=== PATIENT | male | born 1975 | race Caucasian/White ===

== ENCOUNTER 2018-08-18 11:30 | Inpatient (IN) | payer OTHER ==
[2018-08-18] VITALS (9 sets, daily range): BP systolic 96–125; BP diastolic 54–83
[~2018-08-18] VITALS: Ht 198.1 cm; Wt 144.3 kg
[2018-08-18] MEDS ORDERED: PROPOFOL 50 ML IV ONE ×2 (11:38→12:30)
[2018-08-18] MEDS ORDERED: ETOMIDATE 20 MG/10 ML VIAL. IV ONE (11:45)
[2018-08-18] MEDS ORDERED: IV NORMAL SALINE 1000ML BAG 1,000 ML IV ONE ×2 (11:45)
[2018-08-18] MEDS ORDERED: ROCURONIUM 100 MG/10 ML VIAL. IV ONE (11:45)
--- NOTE | 2018-08-18 11:45 | EKG ---
[facility] [address] [place] [address] Test Date: 2018-08-18 Test Time: 11:37:48 Pat Name: NATALIE FERNANDES Department: Room: Gender: M Tuberculosis Specialist: : 1975 Requested By: JACKLYN TREJO Order Number: [id number] Reading MD: Po Gray MD Measurements Intervals [place] Rate: 130 P: AK: QRS: -2 QRSD: 110 T: 35 QT: 326 QTc: 487 Interpretive Statements PROBABLE SUPRAVENTRICULAR TACHYCARDIA - SINUS TACHYCARDIA Electronically Signed On 08-18-2018 12:39:59 CDT by Po Gray MD
[2018-08-18 11:54] LABS: BASO % 1 % (0-3); EOS % 0 % (0-3); HEMATOCRIT 41.9 % (39.0-53.0); HEMOGLOBIN 14.4 g/dL (13.0-17.5); LYMPH # 1.9 x10^3/uL (1.0-4.8); LYMPH % 20 % (24-48); MEAN CORPUSCULAR HEMOGLOBIN 32 pg (25-35); MEAN CORPUSCULAR HGB CONC 34 g/dL (31-37); MEAN CORPUSCULAR VOLUME 92 fL (79-100); MONO # 0.5 x10^3/uL (0.0-1.1); MONO % 5 % (0-9); NEUT % 74 % (31-73); PLATELET COUNT 189 x10^3/uL (140-400); RED BLOOD COUNT 4.55 x10^6/uL (4.30-5.70); RED CELL DISTRIBUTION WIDTH 13.3 % (11.5-14.5); WHITE BLOOD COUNT 9.5 x10^3/uL (4.0-11.0)
[2018-08-18 11:55] LABS: BILIRUBIN,URINE NEGATIVE (NEG); CLARITY,URINE CLEAR; COLOR,URINE YELLOW; NITRITE,URINE NEGATIVE (NEG); PH,URINE 5.5; PROTEIN,URINE NEGATIVE (NEG-TRACE); UROBILINOGEN,URINE 0.2 mg/dL (0.2 mg/dL)
--- NOTE | 2018-08-18 11:56 | PHYS DOC ---
Past Medical History Past Medical History: Diabetes-Type II Adult General Chief Complaint Chief Complaint: ALTERED MENTAL STATUS HPI HPI Patient is a 42-year-old male with an unknown past medical history who presents to the emergency department for evaluation. He was last seen normal at about 8: 30 AM this morning according to EMS report. Family members heard him fall, and then found the patient basically obtunded on the floor. EMS arrived, found the patient to be breathing 6 times per minute, and were assisting ventilation. A blood glucose was about 400 per EMS, prehospital. 2 IVs were placed been no fluids were infused. Upon arrival, the patient is obtunded and nonresponsive. He does exhibit some decorticate posturing. He does have movement in all extremities. He is noted to have midpoint to slightly dilated pupils which are sluggishly reactive. He is noted to have very dry mucous membranes. He is in a cervical collar per EMS. The patient was intubated for airway protection and management upon arrival. Vecuronium and etomidate were used. There is no other family member and the patient is currently unable to provide any history. Review of Systems Review of Systems Unable to obtain review of systems secondary to altered mental status and unresponsiveness. Current Medications Current Medications Current Medications Medications (Trade) Dose Ordered Sig/Jazmin Start Time Stop Time Status Last Admin Dose Admin Etomidate (Amidate) 20 mg 1X ONCE 08/18/18 11:45 08/18/18 12:13 DC 08/18/18 12:02 20 MG Iohexol (Omnipaque 300 Mg/ml) 75 ml 1X ONCE 08/18/18 12:15 08/18/18 12:16 DC Naloxone HCl (Narcan) 0.4 mg 1X ONCE 08/18/18 13:45 08/18/18 13:46 UNV Propofol 50 ml @ 0 mls/hr 1X ONCE 08/18/18 12:30 08/18/18 12:31 DC 08/18/18 11:49 3.9 MLS/HR Rocuronium [place] (Zemuron) 100 mg 1X ONCE 08/18/18 11:45 08/18/18 12:13 DC 08/18/18 11:33 100 MG Sodium Chloride 1,000 ml @ 1,000 mls/hr 1X ONCE 08/18/18 11:45 08/18/18 12:44 DC 08/18/18 12:40 1,000 MLS/HR Allergies Allergies Allergies Coded Allergies Type Severity Reaction Last Updated Verified Unable to Assess 08/18/18 No Physical Exam Physical Exam PHYSICAL EXAM: CONSTITUTIONAL: Well developed, well nourished HEAD: normocephalic, atraumatic EENT: Pupils are midpoint and slightly dilated, about 6 mm, sluggish. Very dry mucous membranes. Gag reflex is absent. NECK: Cervical collar is in place LUNGS: Irregular respirations, lungs are clear. HEART: Regular rate and rhythm, no murmur CHEST: No deformity; non-tender ABDOMEN: The abdomen is soft, and non-tender, no masses or bruits. EXTREM: Normal ROM; no deformity, no calf tenderness. Normal pulses palpable in all extremities. There is no pedal edema. SKIN: No rash; no diaphoresis NEURO: The patient is unresponsive. He does exhibit extension of his ankles to painful stimulus on his anterior shins, and does exhibit some decorticate posturing with his upper extremities. Current Patient Data Vital Signs Vital Signs Date Time Temp Pulse Resp B/P (MAP) Pulse Ox O2 Delivery O2 Flow Rate FiO2 08/18/18 13:20 100 Ventilator 08/18/18 13:10 113 08/18/18 11:35 96.4 20 175/116 (135) 96.4 Lab Values Laboratory Tests Test 08/18/18 11:37 08/18/18 11:38 08/18/18 11:40 08/18/18 11:42 O2 Saturation 98 % (92-99) Arterial Blood pH 7.28 (7.35-7.45) L Arterial Blood pCO2 at Patient Temp 55 mmHg (35-46) H Arterial Blood pO2 at Patient Temp 180 mmHg (75-108) H Arterial Blood HCO3 26 mmol/L (21-28) Arterial Blood Base Excess -2 mmol/L (-3-3) FiO2 80 Glucose (Fingerstick) 343 mg/dL (70-99) H White Blood Count 9.5 x10^3/uL (4.0-11.0) Red Blood Count 4.55 x10^6/uL (4.30-5.70) Hemoglobin 14.4 g/dL (13.0-17.5) Hematocrit 41.9 % (39.0-53.0) Mean Corpuscular Volume 92 fL (79-100) Mean Corpuscular Hemoglobin 32 pg (25-35) Mean Corpuscular Hemoglobin Concent 34 g/dL (31-37) Red Cell Distribution Width 13.3 % (11.5-14.5) Platelet Count 189 x10^3/uL (140-400) Neutrophils (%) (Auto) 74 % (31-73) H Lymphocytes (%) (Auto) 20 % (24-48) L Monocytes (%) (Auto) 5 % (0-9) Eosinophils (%) (Auto) 0 % (0-3) Basophils (%) (Auto) 1 % (0-3) Neutrophils # (Auto) 7.0 x10^3uL (1.8-7.7) Lymphocytes # (Auto) 1.9 x10^3/uL (1.0-4.8) Monocytes # (Auto) 0.5 x10^3/uL (0.0-1.1) Eosinophils # (Auto) 0.0 x10^3/uL (0.0-0.7) Basophils # (Auto) 0.0 x10^3/uL (0.0-0.2) Platelet Estimate Adequate (ADEQUATE) Sodium Level 139 mmol/L (136-145) Potassium Level 3.9 mmol/L (3.5-5.1) Chloride Level 103 mmol/L (98-107) Carbon Dioxide Level 24 mmol/L (21-32) Anion Gap 12 (6-14) Blood Urea Nitrogen 14 mg/dL (8-26) Creatinine 1.0 mg/dL (0.7-1.3) Estimated GFR (Cockcroft-Gault) 81.9 BUN/Creatinine Ratio 14 (6-20) Glucose Level 343 mg/dL (70-99) H Lactic Acid Level 1.2 mmol/L (0.4-2.0) Calcium Level 9.5 mg/dL (8.5-10.1) Magnesium Level 1.8 mg/dL (1.8-2.4) Total Bilirubin 0.2 mg/dL (0.2-1.0) Aspartate Amino Transferase (AST) 19 U/L (15-37) Alanine Aminotransferase (ALT) 49 U/L (16-63) Alkaline Phosphatase 88 U/L (46-116) Creatine Kinase 67 U/L (39-308) Creatine Kinase MB (Mass) 0.5 ng/mL (0.0-3.6) Creatine Kinase MB Relative Index % (0-4) Troponin I Quantitative < 0.017 ng/mL (0.000-0.055) RT-Mor-Y-Type Natriuretic Peptide 7 pg/mL (0-124) Total Protein 7.5 g/dL (6.4-8.2) Albumin 3.8 g/dL (3.4-5.0) Albumin/Globulin Ratio 1.0 (1.0-1.7) Lipase 88 U/L (73-393) Thyroid Stimulating Hormone (TSH) 8.020 uIU/mL (0.358-3.74) H Free Thyroxine 0.90 ng/dL (0.76-1.46) Acetone Level Neg (NEG) Urine Collection Type Unknown Urine Color Yellow Urine Clarity Clear Urine pH 5.5 Urine Specific [place] 1.020 Urine Protein Negative mg/dL (NEG-TRACE) Urine Glucose (UA) >=1000 mg/dL (NEG) Urine Ketones (Stick) Negative mg/dL (NEG) Urine Blood Negative (NEG) Urine Nitrite Negative (NEG) Urine Bilirubin Negative (NEG) Urine Urobilinogen Dipstick 0.2 mg/dL (0.2 mg/dL) Urine Leukocyte Esterase Negative (NEG) Urine RBC 0 /HPF (0-2) Urine WBC Occ /HPF (0-4) Urine Bacteria 0 /HPF (0-FEW) Urine Mucus Mod /LPF Urine Opiates Screen Neg (NEG) Urine Methadone Screen Neg (NEG) Urine Barbiturates Neg (NEG) Urine Phencyclidine Screen Neg (NEG) Urine Amphetamine/Methamphetamine Neg (NEG) Urine Benzodiazepines Screen Neg (NEG) Urine Cocaine Screen Neg (NEG) Urine Cannabinoids Screen Neg (NEG) Urine Ethyl Alcohol Neg (NEG) Test 08/18/18 11:47 POC Hemoglobin 13.6 g/dL (14-18) L POC Hematocrit 40 % (37-52) POC Sodium 140 mmol/L (135-145) POC Potassium 4.1 mmol/L (3.5-5.0) POC Chloride 103 mmol/L (98-110) POC Total CO2 25 mmol/L (23-32) Anion Gap 16 mmol/L (6-14) H POC Blood Urea Nitrogen 15 mg/dL (8-26) POC Creatinine 0.7 mg/dL (0.5-1.4) Glucose Level 340 mg/dL (70-99) H POC Ionized Calcium (Caterina) 1.19 mmol/L (1.13-1.32) Laboratory Tests 08/18/18 11:40 Laboratory Tests 08/18/18 11:40 08/18/18 11:47 EKG EKG Normal sinus rhythm at a rate of 130 beats for minute, borderline left axis deviation, normal intervals. Nonspecific ST/T changes.[] Radiology/Procedures Radiology/Procedures [PROCEDURE: KUB KUB, PORTABLE supine CHEST 1V Clinical Indication: OG TUBE PLACEMENT Comparison: None. Findings: Endotracheal tube tip is 3.3 cm superior to the devyn. Enteric tube tip and side port are in the stomach. There is pulmonary vascular congestion. Cardiac size is normal. No focal airspace disease. No layering pleural effusion. No obvious pneumothorax, limited sensitivity with supine positioning. Bones unremarkable. IMPRESSION: 1. Appropriate position of life support devices. 2. Pulmonary vascular congestion. ] PROCEDURE: CT HEAD AND CERVICAL SPINE WO CT of the head without contrast, 08/18/2018: HISTORY: Patient found unresponsive The ventricles are within normal limits in size. There is no shift of the midline structures. There is no evidence of acute intracranial hemorrhage or mass effect. There appears to be mucoid debris in the posterior nasopharynx. IMPRESSION: No acute intracranial abnormality is detected. CT of the cervical spine without contrast, 08/17/2018: Noncontrast scans were obtained with multiplanar reconstructions produced. C7 was not completely included on this study. No fracture or dislocation is identified. There are mild marginal spurs in the mid and lower cervical spine. There is mild spurring at the C1-2 articulation. No central spinal stenosis is evident. An ET tube and NG tube are in place. IMPRESSION: No acute bony abnormality is detected. PROCEDURE: CT ANGIOGRAPHY HEAD AND NECK CTA of the head and neck with contrast, 08/18/2018: HISTORY: Patient found unresponsive Multidetector CT imaging was performed following an IV bolus injection of iodinated contrast material. Multiplanar reconstructions were produced including coronal and sagittal MIP images as well as 3-D volume rendered reconstructions of the major arteries. Imaging was partially compromised by numerous artifacts. Both common carotid arteries in the neck are widely patent. No significant narrowing is identified at either carotid bifurcation. The distal internal carotid arteries are patent up through the level the [place]. The anterior cerebral and middle cerebral arteries and their major branches are unremarkable bilaterally. Both vertebral arteries are patent up through their junctions with the basilar artery. The left vertebral artery is slightly dominant. The basilar artery shows no abnormality. Both posterior cerebral arteries are patent. IMPRESSION: 1. No carotid or vertebral arterial occlusion or significant stenosis is identified. 2. No major intracranial arterial occlusion is identified. Course & Med Decision Making Course & Med Decision Making Pertinent Labs and Imaging studies reviewed. (See chart for details) The patient was preoxygenated 100% oxygen. Etomidate and rocuronium were used. The patient was intubated using a 3-0 [place] blade, and an 8-0 endotracheal tube. The tube was visualized to pass the vocal cords, good breath sounds were obtained bilaterally, with good color change on CO2 detector. The tube was secured in place. Chest x-ray is pending. 1:35 PM: The patient remains hemodynamically stable. He has had some purposeful movement of his feet bilaterally. The exact etiology of his symptoms are unclear. Initially was felt that the patient might have a basilar stroke, given his profound mental status changes, but given the unremarkable vascular angiogram this is unlikely. Other possibilities include an unknown toxidrome versus postictal state from seizure. Dr. Cordova has seen the patient. I also discussed the patient, pending official imaging reports, with stroke neurologist at , Dr. Bruce. Given the timing and presentation, the patient does not warrant TPA, all agree, and also does not warrant transfer for endovascular intervention, given the lack of large vessel occlusion on imaging. I spoke with the hospitalist, who will admit the patient to the ICU. [CRITICAL CARE TIME: [60] Minutes, excluding any procedures and care of other patients.] Dragon Disclaimer Dragon Disclaimer This electronic medical record was generated, in whole or in part, using a voice recognition dictation system. Departure Departure Impression: Primary Impression: Altered mental status Additional Impression: Respiratory failure Disposition: ADMITTED INPATIENT Admitting Physician: Grabiel Wellington Condition: CRITICAL Referrals: AMRITA MARTINEZ MD (PCP) Problem Qualifiers JACKLYN TREJO MD Aug 18, 2018 11:56
[2018-08-18 12:01] LABS: CREATININE ISTAT 0.7 mg/dL (0.5-1.4); HEMOGLOBIN ISTAT 13.6 g/dL (14-18); ION CA ISTAT 1.19 mmol/L (1.13-1.32); POTASSIUM ISTAT 4.1 mmol/L (3.5-5.0)
[2018-08-18 12:03] LABS: BARBITURATES NEG (NEG); BENZODIAZEPINES NEG (NEG); CANNABINOIDS NEG (NEG); COCAINE NEG (NEG); METHADONE NEG (NEG); OPIATES NEG (NEG); PHENCYCLIDINE NEG (NEG)
[2018-08-18 12:04] LABS: AMPHETAMINE/METHAMPHETAMINE NEG (NEG)
[2018-08-18 12:05] LABS: BASE EXCESS ABG -2 mmol/L (-3-3); HCO3 ABG 26 mmol/L (21-28); PCO2 ABG 55 mmHg (35-46); PO2 ABG 180 mmHg (75-108); SAT O2 ABG 98 % (92-99)
[2018-08-18 12:07] LABS: FIO2 ABG 80
[2018-08-18 12:08] LABS: ACETONE NEG (NEG)
[2018-08-18 12:08] LABS: BACTERIA,URINE 0 /HPF (0-FEW); RBC,URINE 0 /HPF (0-2); WBC,URINE OCC /HPF (0-4)
[2018-08-18 12:13] LABS: ANION GAP 12 (6-14); BLOOD UREA NITROGEN 14 mg/dL (8-26); BUN/CREATININE RATIO 14 (6-20); CALCIUM 9.5 mg/dL (8.5-10.1); CARBON DIOXIDE 24 mmol/L (21-32); CHLORIDE 103 mmol/L (98-107); GFR 81.9; GLUCOSE 343 mg/dL (70-99); POTASSIUM 3.9 mmol/L (3.5-5.1); SODIUM 139 mmol/L (136-145)
[2018-08-18] MEDS ORDERED: IOHEXOL 300 MG/ML 100ML VIAL. IV ONE ×2 (12:15→17:15)
[2018-08-18 12:18] LABS: ALBUMIN 3.8 g/dL (3.4-5.0); ALK PHOS 88 U/L (46-116); ALT (SGPT) 49 U/L (16-63); AST (SGOT) 19 U/L (15-37); LIPASE 88 U/L (73-393); MAGNESIUM 1.8 mg/dL (1.8-2.4); TOTAL BILIRUBIN 0.2 mg/dL (0.2-1.0); TOTAL PROTEIN 7.5 g/dL (6.4-8.2)
--- NOTE | 2018-08-18 12:18 | RAD ---
KUB, PORTABLE supine CHEST 1V Clinical Indication: OG TUBE PLACEMENT Comparison: None. Findings: Endotracheal tube tip is 3.3 cm superior to the devyn. Enteric tube tip and side port are in the stomach. There is pulmonary vascular congestion. Cardiac size is normal. No focal airspace disease. No layering pleural effusion. No obvious pneumothorax, limited sensitivity with supine positioning. Bones unremarkable. IMPRESSION: 1. Appropriate position of life support devices. 2. Pulmonary vascular congestion. Electronically signed by: Andres Cannon MD (08/18/2018 12:15 PM) [id number]
[2018-08-18 12:26] LABS: CREATINE KINASE 67 U/L (39-308)
--- NOTE | 2018-08-18 13:12 | RAD ---
CT of the head without contrast, 08/18/2018: HISTORY: Patient found unresponsive The ventricles are within normal limits in size. There is no shift of the midline structures. There is no evidence of acute intracranial hemorrhage or mass effect. There appears to be mucoid debris in the posterior nasopharynx. IMPRESSION: No acute intracranial abnormality is detected. CT of the cervical spine without contrast, 08/17/2018: Noncontrast scans were obtained with multiplanar reconstructions produced. C7 was not completely included on this study. No fracture or dislocation is identified. There are mild marginal spurs in the mid and lower cervical spine. There is mild spurring at the C1-2 articulation. No central spinal stenosis is evident. An ET tube and NG tube are in place. IMPRESSION: No acute bony abnormality is detected. Electronically signed by: Jose Elias Peterson MD (08/18/2018 1:09 PM) [facility]
[2018-08-18 13:18] LABS: PLT ESTIMATE ADEQUATE (ADEQUATE)
--- NOTE | 2018-08-18 13:19 | RAD ---
CTA of the head and neck with contrast, 08/18/2018: HISTORY: Patient found unresponsive Multidetector CT imaging was performed following an IV bolus injection of iodinated contrast material. Multiplanar reconstructions were produced including coronal and sagittal MIP images as well as 3-D volume rendered reconstructions of the major arteries. Imaging was partially compromised by numerous artifacts. Both common carotid arteries in the neck are widely patent. No significant narrowing is identified at either carotid bifurcation. The distal internal carotid arteries are patent up through the level the [place]. The anterior cerebral and middle cerebral arteries and their major branches are unremarkable bilaterally. Both vertebral arteries are patent up through their junctions with the basilar artery. The left vertebral artery is slightly dominant. The basilar artery shows no abnormality. Both posterior cerebral arteries are patent. IMPRESSION: 1. No carotid or vertebral arterial occlusion or significant stenosis is identified. 2. No major intracranial arterial occlusion is identified. PQRS Compliance Statement: One or more of the following individualized dose reduction techniques were utilized for this examination: 1. Automated exposure control 2. Adjustment of the mA and/or kV according to patient size 3. Use of iterative reconstruction technique Electronically signed by: Jose Elias Peterson MD (08/18/2018 1:16 PM) [facility]
[2018-08-18] MEDS ORDERED: NALOXONE 0.4 MG/ML VIAL. ONE (13:20)
[2018-08-18 13:26] LABS: PROTHROMBIN TIME PATIENT 13.2 SEC (11.7-14.0)
[2018-08-18 13:35] LABS: BASE EXCESS ABG -3 mmol/L (-3-3); HCO3 ABG 23 mmol/L (21-28); PCO2 ABG 48 mmHg (35-46); PO2 ABG 87 mmHg (75-108); SAT O2 ABG 95 % (92-99)
[2018-08-18 13:39] LABS: FIO2 ABG 40
[2018-08-18] MEDS ORDERED: NALOXONE 0.4 MG/ML VIAL. IV ONE (13:45)
--- NOTE | 2018-08-18 14:06 | PDOC2 ---
NEUROLOGY CONSULT Date of Admission Date of Admission DATE: 08/18/18 TIME: 13:57 Reason for Consult Reason for Consult: Altered level of consciousness Referring Physician Referring Physician: Dr. Wellington PCP: Dr. Leon Source Source: Caregiver (), Chart review History of Present Illness History of Present Illness The patient is a 42-year-old right-handed male with a history of diabetes who was last known well about 8:30 AM today. At about 915 his [id number], who lives with them, heard a loud crash in the room. Paramedics found the patient obtunded. There is no history of stroke, seizure, or head injury. There is no known drug abuse. The patient did have a cold last week or 2 weeks ago, and also has had some urinary hesitancy. 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 Current Medications Current Medications Current Medications Propofol 50 ml @ As Directed STK-MED ONCE IV ; Start 08/18/18 at 11:38; Stop 08/18/18 at 11:39; Status DC Sodium Chloride 1,000 ml @ 1,000 mls/hr 1X ONCE IV Last administered on 08/18at 12:04; Start 08/18/18 at 11:45; Stop 08/18/18 at 12:44; Status DC Sodium Chloride 1,000 ml @ 1,000 mls/hr 1X ONCE IV Last administered on 08/18at 12:40; Start 08/18/18 at 11:45; Stop 08/18/18 at 12:44; Status DC Rocuronium [place] (Zemuron) 100 mg 1X ONCE IV Last administered on at 11:33; Start 08/18/18 at 11:45; Stop 08/18/18 at 12:13; Status DC Etomidate (Amidate) 20 mg 1X ONCE IV Last administered on 08/18/18at 12:02; Start 08/18/18 at 11:45; Stop 08/18/18 at 12:13; Status DC Iohexol (Omnipaque 300 Mg/ml) 75 ml 1X ONCE IV ; Start 08/18/18 at 12:15; Stop 08/18/18 at 12:16; Status DC Propofol 50 ml @ 0 mls/hr 1X ONCE IV Last administered on 08/18/18at 11:49; Start 08/18/18 at 12:30; Stop 08/18/18 at 12:31; Status DC Naloxone HCl (Narcan) 0.4 mg STK-MED ONCE .ROUTE ; Start 08/18/18 at 13:20; Stop 08/18/18 at 13:21; Status DC Naloxone HCl (Narcan) 0.4 mg 1X ONCE IV Last administered on 08/18/18at 13:22 ; Start 08/18/18 at 13:45; Stop 08/18/18 at 13:46; Status DC Allergies Allergies: Coded Allergies: No Known Drug Allergies (Unverified , 08/18/18) ROS Review of System Negative for fevers, chills, weight loss, shortness of breath, chest pain, indigestion, hematochezia, melena. Positive for dysuria. Full 14-point review systems is negative. Physical Exam Physical Examination General: Well-developed, well-nourished, white male, in no acute distress HEENT: Normocephalic andatraumatic.Temporal arteriespulsatile and nontender. Fundoscopic exam unremarkable Neck: Supple without bruit, no meningismus, in a cervical collar Musculoskeletal: Stability:see neurologic. Gait exam:see neurologic. Tone:see neurologic. Strength:see neurologic. Neurological: Mental Status:orientation, memory, attention span/concentration, language, fund of knowledge: intimated, sedated in the emergency department, does not follow commands. Cranial Nerves:Pupils equal and reactive to light, extraocular movements areintact, Vestibulo-ocular reflex is intact. All other cranial related problems are negative except as mentioned before.Reflexes:0+ and symmetric with flexor plantar responses. Motor: withdraws to mild pain. Coordination: not cooperative. Gait: not tested. Sensory: not tested. Vitals VITALS Vital Signs Date Time Temp Pulse Resp B/P (MAP) Pulse Ox O2 Delivery O2 Flow Rate FiO2 08/18/18 13:35 95 100 08/18/18 13:20 Ventilator 08/18/18 11:35 96.4 20 175/116 (135) 96.4 Labs Labs Laboratory Tests Test 08/18/18 11:37 08/18/18 11:38 08/18/18 11:40 08/18/18 11:42 O2 Saturation 98 % (92-99) Arterial Blood pH 7.28 (7.35-7.45) Arterial Blood pCO2 at Patient Temp 55 mmHg (35-46) Arterial Blood pO2 at Patient Temp 180 mmHg (75-108) Arterial Blood HCO3 26 mmol/L (21-28) Arterial Blood Base Excess -2 mmol/L (-3-3) FiO2 80 Glucose (Fingerstick) 343 mg/dL (70-99) White Blood Count 9.5 x10^3/uL (4.0-11.0) Red Blood Count 4.55 x10^6/uL (4.30-5.70) Hemoglobin 14.4 g/dL (13.0-17.5) Hematocrit 41.9 % (39.0-53.0) Mean Corpuscular Volume 92 fL (79-100) Mean Corpuscular Hemoglobin 32 pg (25-35) Mean Corpuscular Hemoglobin Concent 34 g/dL (31-37) Red Cell Distribution Width 13.3 % (11.5-14.5) Platelet Count 189 x10^3/uL (140-400) Neutrophils (%) (Auto) 74 % (31-73) Lymphocytes (%) (Auto) 20 % (24-48) Monocytes (%) (Auto) 5 % (0-9) Eosinophils (%) (Auto) 0 % (0-3) Basophils (%) (Auto) 1 % (0-3) Neutrophils # (Auto) 7.0 x10^3uL (1.8-7.7) Lymphocytes # (Auto) 1.9 x10^3/uL (1.0-4.8) Monocytes # (Auto) 0.5 x10^3/uL (0.0-1.1) Eosinophils # (Auto) 0.0 x10^3/uL (0.0-0.7) Basophils # (Auto) 0.0 x10^3/uL (0.0-0.2) Platelet Estimate Adequate (ADEQUATE) Sodium Level 139 mmol/L (136-145) Potassium Level 3.9 mmol/L (3.5-5.1) Chloride Level 103 mmol/L (98-107) Carbon Dioxide Level 24 mmol/L (21-32) Anion Gap 12 (6-14) Blood Urea Nitrogen 14 mg/dL (8-26) Creatinine 1.0 mg/dL (0.7-1.3) Estimated GFR (Cockcroft-Gault) 81.9 BUN/Creatinine Ratio 14 (6-20) Glucose Level 343 mg/dL (70-99) Lactic Acid Level 1.2 mmol/L (0.4-2.0) Calcium Level 9.5 mg/dL (8.5-10.1) Magnesium Level 1.8 mg/dL (1.8-2.4) Total Bilirubin 0.2 mg/dL (0.2-1.0) Aspartate Amino Transf (AST/SGOT) 19 U/L (15-37) Alanine Aminotransferase (ALT/SGPT) 49 U/L (16-63) Alkaline Phosphatase 88 U/L (46-116) Creatine Kinase 67 U/L (39-308) Creatine Kinase MB (Mass) 0.5 ng/mL (0.0-3.6) Creatine Kinase MB Relative Index % (0-4) Troponin I Quantitative < 0.017 ng/mL (0.000-0.055) OM-Koz-[id number]-Type Natriuretic Peptide 7 pg/mL (0-124) Total Protein 7.5 g/dL (6.4-8.2) Albumin 3.8 g/dL (3.4-5.0) Albumin/Globulin Ratio 1.0 (1.0-1.7) Lipase 88 U/L (73-393) Thyroid Stimulating Hormone (TSH) 8.020 uIU/mL (0.358-3.74) Free Thyroxine 0.90 ng/dL (0.76-1.46) Acetone Level Neg (NEG) Urine Collection Type Unknown Urine Color Yellow Urine Clarity Clear Urine pH 5.5 Urine Specific Miles 1.020 Urine Protein Negative mg/dL (NEG-TRACE) Urine Glucose (UA) >=1000 mg/dL (NEG) Urine Ketones (Stick) Negative mg/dL (NEG) Urine Blood Negative (NEG) Urine Nitrite Negative (NEG) Urine Bilirubin Negative (NEG) Urine Urobilinogen Dipstick 0.2 mg/dL (0.2 mg/dL) Urine Leukocyte Esterase Negative (NEG) Urine RBC 0 /HPF (0-2) Urine WBC Occ /HPF (0-4) Urine Bacteria 0 /HPF (0-FEW) Urine Mucus Mod /LPF Urine Opiates Screen Neg (NEG) Urine Methadone Screen Neg (NEG) Urine Barbiturates Neg (NEG) Urine Phencyclidine Screen Neg (NEG) Urine Amphetamine/Methamphetamine Neg (NEG) Urine Benzodiazepines Screen Neg (NEG) Urine Cocaine Screen Neg (NEG) Urine Cannabinoids Screen Neg (NEG) Urine Ethyl Alcohol Neg (NEG) Test 08/18/18 11:47 08/18/18 13:00 08/18/18 13:30 Bedside Hemoglobin 13.6 g/dL (14-18) Bedside Hematocrit 40 % (37-52) Bedside Sodium 140 mmol/L (135-145) Bedside Potassium 4.1 mmol/L (3.5-5.0) Bedside Chloride 103 mmol/L (98-110) Bedside Total CO2 25 mmol/L (23-32) Anion Gap 16 mmol/L (6-14) Bedside Blood Urea Nitrogen 15 mg/dL (8-26) Bedside Creatinine 0.7 mg/dL (0.5-1.4) Glucose Level 340 mg/dL (70-99) Bedside Ionized Calcium (Caterina) 1.19 mmol/L (1.13-1.32) Prothrombin Time 13.2 SEC (11.7-14.0) Prothromb Time International Ratio 1.1 (0.8-1.1) Activated Partial Thromboplast Time 24 SEC (24-38) O2 Saturation 95 % (92-99) Arterial Blood pH 7.30 (7.35-7.45) Arterial Blood pCO2 at Patient Temp 48 mmHg (35-46) Arterial Blood pO2 at Patient Temp 87 mmHg (75-108) Arterial Blood HCO3 23 mmol/L (21-28) Arterial Blood Base Excess -3 mmol/L (-3-3) FiO2 40 Laboratory Tests Test 08/18/18 11:37 08/18/18 11:38 08/18/18 11:40 08/18/18 11:42 O2 Saturation 98 % (92-99) Arterial Blood pH 7.28 (7.35-7.45) Arterial Blood pCO2 at Patient Temp 55 mmHg (35-46) Arterial Blood pO2 at Patient Temp 180 mmHg (75-108) Arterial Blood HCO3 26 mmol/L (21-28) Arterial Blood Base Excess -2 mmol/L (-3-3) FiO2 80 Glucose (Fingerstick) 343 mg/dL (70-99) White Blood Count 9.5 x10^3/uL (4.0-11.0) Red Blood Count 4.55 x10^6/uL (4.30-5.70) Hemoglobin 14.4 g/dL (13.0-17.5) Hematocrit 41.9 % (39.0-53.0) Mean Corpuscular Volume 92 fL (79-100) Mean Corpuscular Hemoglobin 32 pg (25-35) Mean Corpuscular Hemoglobin Concent 34 g/dL (31-37) Red Cell Distribution Width 13.3 % (11.5-14.5) Platelet Count 189 x10^3/uL (140-400) Neutrophils (%) (Auto) 74 % (31-73) Lymphocytes (%) (Auto) 20 % (24-48) Monocytes (%) (Auto) 5 % (0-9) Eosinophils (%) (Auto) 0 % (0-3) Basophils (%) (Auto) 1 % (0-3) Neutrophils # (Auto) 7.0 x10^3uL (1.8-7.7) Lymphocytes # (Auto) 1.9 x10^3/uL (1.0-4.8) Monocytes # (Auto) 0.5 x10^3/uL (0.0-1.1) Eosinophils # (Auto) 0.0 x10^3/uL (0.0-0.7) Basophils # (Auto) 0.0 x10^3/uL (0.0-0.2) Platelet Estimate Adequate (ADEQUATE) Sodium Level 139 mmol/L (136-145) Potassium Level 3.9 mmol/L (3.5-5.1) Chloride Level 103 mmol/L (98-107) Carbon Dioxide Level 24 mmol/L (21-32) Anion Gap 12 (6-14) Blood Urea Nitrogen 14 mg/dL (8-26) Creatinine 1.0 mg/dL (0.7-1.3) Estimated GFR (Cockcroft-Gault) 81.9 BUN/Creatinine Ratio 14 (6-20) Glucose Level 343 mg/dL (70-99) Lactic Acid Level 1.2 mmol/L (0.4-2.0) Calcium Level 9.5 mg/dL (8.5-10.1) Magnesium Level 1.8 mg/dL (1.8-2.4) Total Bilirubin 0.2 mg/dL (0.2-1.0) Aspartate Amino Transf (AST/SGOT) 19 U/L (15-37) Alanine Aminotransferase (ALT/SGPT) 49 U/L (16-63) Alkaline Phosphatase 88 U/L (46-116) Creatine Kinase 67 U/L (39-308) Creatine Kinase MB (Mass) 0.5 ng/mL (0.0-3.6) Creatine Kinase MB Relative Index % (0-4) Troponin I Quantitative < 0.017 ng/mL (0.000-0.055) KG-Hlq-Z-Type Natriuretic Peptide 7 pg/mL (0-124) Total Protein 7.5 g/dL (6.4-8.2) Albumin 3.8 g/dL (3.4-5.0) Albumin/Globulin Ratio 1.0 (1.0-1.7) Lipase 88 U/L (73-393) Thyroid Stimulating Hormone (TSH) 8.020 uIU/mL (0.358-3.74) Free Thyroxine 0.90 ng/dL (0.76-1.46) Acetone Level Neg (NEG) Urine Collection Type Unknown Urine Color Yellow Urine Clarity Clear Urine pH 5.5 Urine Specific Miles 1.020 Urine Protein Negative mg/dL (NEG-TRACE) Urine Glucose (UA) >=1000 mg/dL (NEG) Urine Ketones (Stick) Negative mg/dL (NEG) Urine Blood Negative (NEG) Urine Nitrite Negative (NEG) Urine Bilirubin Negative (NEG) Urine Urobilinogen Dipstick 0.2 mg/dL (0.2 mg/dL) Urine Leukocyte Esterase Negative (NEG) Urine RBC 0 /HPF (0-2) Urine WBC Occ /HPF (0-4) Urine Bacteria 0 /HPF (0-FEW) Urine Mucus Mod /LPF Urine Opiates Screen Neg (NEG) Urine Methadone Screen Neg (NEG) Urine Barbiturates Neg (NEG) Urine Phencyclidine Screen Neg (NEG) Urine Amphetamine/Methamphetamine Neg (NEG) Urine Benzodiazepines Screen Neg (NEG) Urine Cocaine Screen Neg (NEG) Urine Cannabinoids Screen Neg (NEG) Urine Ethyl Alcohol Neg (NEG) Test 08/18/18 11:47 08/18/18 13:00 08/18/18 13:30 Bedside Hemoglobin 13.6 g/dL (14-18) Bedside Hematocrit 40 % (37-52) Bedside Sodium 140 mmol/L (135-145) Bedside Potassium 4.1 mmol/L (3.5-5.0) Bedside Chloride 103 mmol/L (98-110) Bedside Total CO2 25 mmol/L (23-32) Anion Gap 16 mmol/L (6-14) Bedside Blood Urea Nitrogen 15 mg/dL (8-26) Bedside Creatinine 0.7 mg/dL (0.5-1.4) Glucose Level 340 mg/dL (70-99) Bedside Ionized Calcium (Caterina) 1.19 mmol/L (1.13-1.32) Prothrombin Time 13.2 SEC (11.7-14.0) Prothromb Time International Ratio 1.1 (0.8-1.1) Activated Partial Thromboplast Time 24 SEC (24-38) O2 Saturation 95 % (92-99) Arterial Blood pH 7.30 (7.35-7.45) Arterial Blood pCO2 at Patient Temp 48 mmHg (35-46) Arterial Blood pO2 at Patient Temp 87 mmHg (75-108) Arterial Blood HCO3 23 mmol/L (21-28) Arterial Blood Base Excess -3 mmol/L (-3-3) FiO2 40 Images Images CTA of the head and neck with contrast, 08/18/2018: HISTORY: Patient found unresponsive Multidetector CT imaging was performed following an IV bolus injection of iodinated contrast material. Multiplanar reconstructions were produced including coronal and sagittal MIP images as well as 3-D volume rendered reconstructions of the major arteries. Imaging was partially compromised by numerous artifacts. Both common carotid arteries in the neck are widely patent. No significant narrowing is identified at either carotid bifurcation. The distal internal carotid arteries are patent up through the level the [place]. The anterior cerebral and middle cerebral arteries and their major branches are unremarkable bilaterally. Both vertebral arteries are patent up through their junctions with the basilar artery. The left vertebral artery is slightly dominant. The basilar artery shows no abnormality. Both posterior cerebral arteries are patent. IMPRESSION: 1. No carotid or vertebral arterial occlusion or significant stenosis is identified. 2. No major intracranial arterial occlusion is identified. CT of the head without contrast, 08/18/2018: HISTORY: Patient found unresponsive The ventricles are within normal limits in size. There is no shift of the midline structures. There is no evidence of acute intracranial hemorrhage or mass effect. There appears to be mucoid debris in the posterior nasopharynx. IMPRESSION: No acute intracranial abnormality is detected. CT of the cervical spine without contrast, 08/17/2018: Noncontrast scans were obtained with multiplanar reconstructions produced. C7 was not completely included on this study. No fracture or dislocation is identified. There are mild marginal spurs in the mid and lower cervical spine. There is mild spurring at the C1-2 articulation. No central spinal stenosis is evident. An ET tube and NG tube are in place. IMPRESSION: No acute bony abnormality is detected. Assessment/Plan Assessment/Plan Impression: Obtundation, no evidence of brainstem stroke which was our first concern. No obvious metabolic derangement although pulmonary embolus I suppose as possible. I suspect most likely he had a seizure given the sudden crash that the mother-in -law heard. I find no evidence of ongoing central nervous system infection. Recommendations: MRI of the brain Electroencephalogram Lumbar puncture I discussed possible use of alteplase with the family, but I believe the risks outweigh the benefits especially since, as he had a stroke, it would have to be large vessel, which did not show up on the CT Instagram, and the patient is on the borderline or outside the time window Fully discussed with family. Thank you for letting me help with the patient's care. CAMMY DOUGLAS MD Aug 18, 2018 14:06
--- NOTE | 2018-08-18 14:12 | HP ---
ADMIT DATE: 08/18/2018 CHIEF COMPLAINT: Found down. HISTORY OF PRESENT ILLNESS: The patient is a pleasant 42-year-old male who has a few health problems. Please see below. Basically, he was at home. His [id number] states she heard thud of stairs. When she went upstairs, he was unresponsive. She called 911. When they arrived, they bagged the patient and brought him to the ER. Now, he has been intubated in the Emergency Room. We scanned his brain, it has not shown much. We are not quite clear why the patient was found down. Perhaps he had a seizure or pulmonary embolism or dropped his pressure somehow. The patient has been admitted to the ICU. I have just discussed the case with the nurse, his and ER physician. This is a critically ill patient. PAST MEDICAL HISTORY: Hypertension, hyperlipidemia, diabetes, obstructive sleep apnea and he is noncompliant with his CPAP. ALLERGIES: None. FAMILY HISTORY: Hypertension. 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 He is . He does not drink, smoke or take drugs. MEDICATIONS: Reviewed, please refer to the MRAD. REVIEW OF SYSTEMS: Unable to obtain. The patient is intubated. PHYSICAL EXAMINATION: VITAL SIGNS: Temperature afebrile, pulse 100, respirations 18, blood pressure 140/91. GENERAL: He is sedated on the vent. HEART: Normal S1, S2. LUNGS: Clear. ABDOMEN: Soft. EXTREMITIES: Trace edema. SKIN: No rashes. ENDOCRINE: No thyromegaly. LYMPHATICS: No cervical nodes. HEMATOPOIETIC: No bruising. HEENT: The pupils are equally round and reactive to light and accommodation. DIAGNOSTIC DATA: CT of the head is negative. Lab is pending. His glucose was elevated into the mid 300s. ASSESSMENT AND PLAN: Found down, unclear etiology, perhaps a pulmonary embolism, perhaps an arrhythmia or hypotension or seizure. The patient has been admitted to the ICU. We have consulted Dr. Cordova, I just discussed the case with him. Consult Pulmonary for vent management, home meds, sliding scale insulin. PROGNOSIS: Guarded. Total time 32 minutes. RAVEN PENNINGTON DO DR: TERESO/olivia JOB#: [id number] / [id number]
[2018-08-18] MEDS ORDERED: PROPOFOL 100 ML IV ONE (14:37)
[2018-08-18] MEDS ORDERED: LIDOCAINE WITH 8.4% SOD BICARB 3 ML DISP.SYRIN. INJ ONE (14:45)
[2018-08-18] MEDS ORDERED: PROPOFOL 10 MG/ML (100ML) VIAL. IV ONE (15:00)
--- NOTE | 2018-08-18 15:43 | RAD ---
Fluoroscopically guided lumbar puncture, 08/18/2018: HISTORY: Altered mental status Under local anesthesia, aseptic conditions and fluoroscopic guidance a lumbar puncture was performed at the L2-3 level utilizing a 20-gauge spinal needle. Good clear CSF flow was obtained. A total of 8 cc of CSF was removed as requested and sent to the lab for appropriate studies. The spinal needle was then removed and hemostasis obtained. 1 minute of fluoroscopy time was utilized. One fluoroscopic spot image was recorded. The patient tolerated the procedure well and was sent to the MR suite in stable condition. Electronically signed by: Jose Elias Peterson MD (08/18/2018 3:40 PM) [facility]
[2018-08-18 16:16] LABS: CSF PROTEIN 39.6 mg/dL (15.0-45.0)
--- NOTE | 2018-08-18 16:20 | RAD ---
MRI of the brain without contrast 08/18/2018 Clinical History: Patient found unresponsive. Altered mental status. Technique: Unenhanced T1-weighted sagittal and axial, T2-weighted axial and coronal and FLAIR, gradient echo and diffusion-weighted axial images of the brain were obtained. Findings: Comparison is made to a CT scan of the head performed earlier today. Images from the study are degraded by patient motion. The ventricles and sulci are within normal limits in size and configuration. No area of significant abnormal signal intensity is seen involving the brain parenchyma. No extra-axial fluid collection is seen. There is no MRI evidence of acute ischemia/infarction. Mild to moderate mucosal thickening is seen scattered throughout the paranasal sinuses. There are minimal bilateral mastoid effusions. Normal flow voids are seen within the major vascular structures surrounding the brain parenchyma. IMPRESSION: No acute parenchymal abnormality is seen. Electronically signed by: Selvin Hayden MD (08/18/2018 4:17 PM) [id number]
[2018-08-18 17:01] LABS: CSF CLARITY CLEAR; CSF COLOR COLORLESS; CSF RBC COUNT 0; CSF WBC COUNT 2
[2018-08-18] MEDS ORDERED: CONTRAST GIVEN. MC PRN (17:15)
--- NOTE | 2018-08-18 18:21 | RAD ---
EXAM: CTA chest, abdomen and pelvis with/without contrast. HISTORY: Unresponsive, syncope, evidence of pulmonary embolism and aortic aneurysm. TECHNIQUE: CTA of the chest, abdomen and pelvis was performed before and after the intravenous administration of 90 mL Omnipaque 300. Three-dimensional reconstructions were also performed. COMPARISON: None. FINDINGS: Bone windows reveal no suspicious lesions. An endotracheal tube has its tip above the devyn. A nasogastric tube has its tip in the stomach. The bladder is decompressed by a Antony catheter. There is no aortic dissection or aneurysm. There are minimal atherosclerotic calcifications along the distal abdominal aorta. The ascending aorta is normal in caliber at 3.3 cm. The descending portion measures 2.8 cm. The aortic arch has a typical branching pattern. There is no arch vessel stenosis. Respiratory motion artifact limits assessment for small peripheral pulmonary emboli. None are seen. The main pulmonary artery is not enlarged. The celiac axis, superior mesenteric artery and inferior mesenteric artery are widely patent. There are 2 right renal arteries, with a small accessory to the right upper pole. There is one left renal artery. There is no stenosis. The common, external and internal iliac arteries demonstrate no stenosis. Calcified mediastinal lymph nodes are likely secondary to old granulomatous disease. There are no pathologically enlarged mediastinal or axillary lymph nodes. There is no pericardial or significant pleural effusion. The heart is at the upper limits of normal size. Lung windows reveal bilateral dependent atelectasis. There are no acute infiltrates. The liver, gallbladder, pancreas, adrenal glands, spleen and kidneys are unremarkable in this phase of contrast. There are no pathologically enlarged lymph nodes. The appendix is not inflamed. There is no small bowel obstruction. IMPRESSION: 1. No aortic dissection or aneurysm. 2. Respiratory motion artifact limits sensitivity for small peripheral pulmonary emboli. None are seen. 3. No significant arterial stenosis. Minimal atherosclerotic changes. 4. Borderline cardiomegaly. Correlate with echocardiography. 5. Moderate bilateral dependent atelectasis. *One or more of the following individualized dose reduction techniques were utilized for this examination: 1. Automated exposure control. 2. Adjustment of the mA and/or kV according to patient size. 3. Use of iterative reconstruction technique. Electronically signed by: Dontae Villanueva MD (08/18/2018 6:18 PM) [facility]
[2018-08-18] MEDS: PROPOFOL 100 ML IV PRN ×2 (18:25→21:29)
[2018-08-18] MEDS: IV NORMAL SALINE 1000ML BAG 1,000 ML IV SCH (18:27)
[2018-08-18] MEDS ORDERED: DEXTROSE 50% 25 GM / 50ML DISP.SYRIN. IV PRN (18:45)
--- NOTE | 2018-08-18 19:16 | PDOC ---
PULMONARY PROGRESS NOTES Vitals Vital Signs Date Time Temp Pulse Resp B/P (MAP) Pulse Ox O2 Delivery O2 Flow Rate FiO2 08/18/18 18:00 84 18 96/63 (74) 100 Ventilator 08/18/18 16:00 97.3 97.3 Labs Laboratory Tests Test 08/18/18 11:37 08/18/18 11:38 08/18/18 11:40 08/18/18 11:42 O2 Saturation 98 % (92-99) Arterial Blood pH 7.28 (7.35-7.45) Arterial Blood pCO2 at Patient Temp 55 mmHg (35-46) Arterial Blood pO2 at Patient Temp 180 mmHg (75-108) Arterial Blood HCO3 26 mmol/L (21-28) Arterial Blood Base Excess -2 mmol/L (-3-3) FiO2 80 Glucose (Fingerstick) 343 mg/dL (70-99) White Blood Count 9.5 x10^3/uL (4.0-11.0) Red Blood Count 4.55 x10^6/uL (4.30-5.70) Hemoglobin 14.4 g/dL (13.0-17.5) Hematocrit 41.9 % (39.0-53.0) Mean Corpuscular Volume 92 fL (79-100) Mean Corpuscular Hemoglobin 32 pg (25-35) Mean Corpuscular Hemoglobin Concent 34 g/dL (31-37) Red Cell Distribution Width 13.3 % (11.5-14.5) Platelet Count 189 x10^3/uL (140-400) Neutrophils (%) (Auto) 74 % (31-73) Lymphocytes (%) (Auto) 20 % (24-48) Monocytes (%) (Auto) 5 % (0-9) Eosinophils (%) (Auto) 0 % (0-3) Basophils (%) (Auto) 1 % (0-3) Neutrophils # (Auto) 7.0 x10^3uL (1.8-7.7) Lymphocytes # (Auto) 1.9 x10^3/uL (1.0-4.8) Monocytes # (Auto) 0.5 x10^3/uL (0.0-1.1) Eosinophils # (Auto) 0.0 x10^3/uL (0.0-0.7) Basophils # (Auto) 0.0 x10^3/uL (0.0-0.2) Platelet Estimate Adequate (ADEQUATE) Sodium Level 139 mmol/L (136-145) Potassium Level 3.9 mmol/L (3.5-5.1) Chloride Level 103 mmol/L (98-107) Carbon Dioxide Level 24 mmol/L (21-32) Anion Gap 12 (6-14) Blood Urea Nitrogen 14 mg/dL (8-26) Creatinine 1.0 mg/dL (0.7-1.3) Estimated GFR (Cockcroft-Gault) 81.9 BUN/Creatinine Ratio 14 (6-20) Glucose Level 343 mg/dL (70-99) Lactic Acid Level 1.2 mmol/L (0.4-2.0) Calcium Level 9.5 mg/dL (8.5-10.1) Magnesium Level 1.8 mg/dL (1.8-2.4) Total Bilirubin 0.2 mg/dL (0.2-1.0) Aspartate Amino Transf (AST/SGOT) 19 U/L (15-37) Alanine Aminotransferase (ALT/SGPT) 49 U/L (16-63) Alkaline Phosphatase 88 U/L (46-116) Creatine Kinase 67 U/L (39-308) Creatine Kinase MB (Mass) 0.5 ng/mL (0.0-3.6) Creatine Kinase MB Relative Index % (0-4) Troponin I Quantitative < 0.017 ng/mL (0.000-0.055) EU-Tlg-C-Type Natriuretic Peptide 7 pg/mL (0-124) Total Protein 7.5 g/dL (6.4-8.2) Albumin 3.8 g/dL (3.4-5.0) Albumin/Globulin Ratio 1.0 (1.0-1.7) Lipase 88 U/L (73-393) Thyroid Stimulating Hormone (TSH) 8.020 uIU/mL (0.358-3.74) Free Thyroxine 0.90 ng/dL (0.76-1.46) Acetone Level Neg (NEG) Urine Collection Type Unknown Urine Color Yellow Urine Clarity Clear Urine pH 5.5 Urine Specific [place] 1.020 Urine Protein Negative mg/dL (NEG-TRACE) Urine Glucose (UA) >=1000 mg/dL (NEG) Urine Ketones (Stick) Negative mg/dL (NEG) Urine Blood Negative (NEG) Urine Nitrite Negative (NEG) Urine Bilirubin Negative (NEG) Urine Urobilinogen Dipstick 0.2 mg/dL (0.2 mg/dL) Urine Leukocyte Esterase Negative (NEG) Urine RBC 0 /HPF (0-2) Urine WBC Occ /HPF (0-4) Urine Bacteria 0 /HPF (0-FEW) Urine Mucus Mod /LPF Urine Opiates Screen Neg (NEG) Urine Methadone Screen Neg (NEG) Urine Barbiturates Neg (NEG) Urine Phencyclidine Screen Neg (NEG) Urine Amphetamine/Methamphetamine Neg (NEG) Urine Benzodiazepines Screen Neg (NEG) Urine Cocaine Screen Neg (NEG) Urine Cannabinoids Screen Neg (NEG) Urine Ethyl Alcohol Neg (NEG) Test 08/18/18 11:47 08/18/18 13:00 08/18/18 13:30 08/18/18 15:30 Bedside Hemoglobin 13.6 g/dL (14-18) Bedside Hematocrit 40 % (37-52) Bedside Sodium 140 mmol/L (135-145) Bedside Potassium 4.1 mmol/L (3.5-5.0) Bedside Chloride 103 mmol/L (98-110) Bedside Total CO2 25 mmol/L (23-32) Anion Gap 16 mmol/L (6-14) Bedside Blood Urea Nitrogen 15 mg/dL (8-26) Bedside Creatinine 0.7 mg/dL (0.5-1.4) Glucose Level 340 mg/dL (70-99) Bedside Ionized Calcium (Caterina) 1.19 mmol/L (1.13-1.32) Prothrombin Time 13.2 SEC (11.7-14.0) Prothromb Time International Ratio 1.1 (0.8-1.1) Activated Partial Thromboplast Time 24 SEC (24-38) O2 Saturation 95 % (92-99) Arterial Blood pH 7.30 (7.35-7.45) Arterial Blood pCO2 at Patient Temp 48 mmHg (35-46) Arterial Blood pO2 at Patient Temp 87 mmHg (75-108) Arterial Blood HCO3 23 mmol/L (21-28) Arterial Blood Base Excess -3 mmol/L (-3-3) FiO2 40 CSF Color Colorless CSF Clarity Clear CSF WBC 2 CSF RBC 0 CSF Glucose 163 mg/dL (37-70) CSF Total Protein 39.6 mg/dL (15.0-45.0) Test 08/18/18 18:41 Glucose (Fingerstick) 253 mg/dL (70-99) Laboratory Tests Test 08/18/18 11:37 08/18/18 11:38 08/18/18 11:40 08/18/18 11:42 O2 Saturation 98 % (92-99) Arterial Blood pH 7.28 (7.35-7.45) Arterial Blood pCO2 at Patient Temp 55 mmHg (35-46) Arterial Blood pO2 at Patient Temp 180 mmHg (75-108) Arterial Blood HCO3 26 mmol/L (21-28) Arterial Blood Base Excess -2 mmol/L (-3-3) FiO2 80 Glucose (Fingerstick) 343 mg/dL (70-99) White Blood Count 9.5 x10^3/uL (4.0-11.0) Red Blood Count 4.55 x10^6/uL (4.30-5.70) Hemoglobin 14.4 g/dL (13.0-17.5) Hematocrit 41.9 % (39.0-53.0) Mean Corpuscular Volume 92 fL (79-100) Mean Corpuscular Hemoglobin 32 pg (25-35) Mean Corpuscular Hemoglobin Concent 34 g/dL (31-37) Red Cell Distribution Width 13.3 % (11.5-14.5) Platelet Count 189 x10^3/uL (140-400) Neutrophils (%) (Auto) 74 % (31-73) Lymphocytes (%) (Auto) 20 % (24-48) Monocytes (%) (Auto) 5 % (0-9) Eosinophils (%) (Auto) 0 % (0-3) Basophils (%) (Auto) 1 % (0-3) Neutrophils # (Auto) 7.0 x10^3uL (1.8-7.7) Lymphocytes # (Auto) 1.9 x10^3/uL (1.0-4.8) Monocytes # (Auto) 0.5 x10^3/uL (0.0-1.1) Eosinophils # (Auto) 0.0 x10^3/uL (0.0-0.7) Basophils # (Auto) 0.0 x10^3/uL (0.0-0.2) Platelet Estimate Adequate (ADEQUATE) Sodium Level 139 mmol/L (136-145) Potassium Level 3.9 mmol/L (3.5-5.1) Chloride Level 103 mmol/L (98-107) Carbon Dioxide Level 24 mmol/L (21-32) Anion Gap 12 (6-14) Blood Urea Nitrogen 14 mg/dL (8-26) Creatinine 1.0 mg/dL (0.7-1.3) Estimated GFR (Cockcroft-Gault) 81.9 BUN/Creatinine Ratio 14 (6-20) Glucose Level 343 mg/dL (70-99) Lactic Acid Level 1.2 mmol/L (0.4-2.0) Calcium Level 9.5 mg/dL (8.5-10.1) Magnesium Level 1.8 mg/dL (1.8-2.4) Total Bilirubin 0.2 mg/dL (0.2-1.0) Aspartate Amino Transf (AST/SGOT) 19 U/L (15-37) Alanine Aminotransferase (ALT/SGPT) 49 U/L (16-63) Alkaline Phosphatase 88 U/L (46-116) Creatine Kinase 67 U/L (39-308) Creatine Kinase MB (Mass) 0.5 ng/mL (0.0-3.6) Creatine Kinase MB Relative Index % (0-4) Troponin I Quantitative < 0.017 ng/mL (0.000-0.055) LO-Onx-R-Type Natriuretic Peptide 7 pg/mL (0-124) Total Protein 7.5 g/dL (6.4-8.2) Albumin 3.8 g/dL (3.4-5.0) Albumin/Globulin Ratio 1.0 (1.0-1.7) Lipase 88 U/L (73-393) Thyroid Stimulating Hormone (TSH) 8.020 uIU/mL (0.358-3.74) Free Thyroxine 0.90 ng/dL (0.76-1.46) Acetone Level Neg (NEG) Urine Collection Type Unknown Urine Color Yellow Urine Clarity Clear Urine pH 5.5 Urine Specific [place] 1.020 Urine Protein Negative mg/dL (NEG-TRACE) Urine Glucose (UA) >=1000 mg/dL (NEG) Urine Ketones (Stick) Negative mg/dL (NEG) Urine Blood Negative (NEG) Urine Nitrite Negative (NEG) Urine Bilirubin Negative (NEG) Urine Urobilinogen Dipstick 0.2 mg/dL (0.2 mg/dL) Urine Leukocyte Esterase Negative (NEG) Urine RBC 0 /HPF (0-2) Urine WBC Occ /HPF (0-4) Urine Bacteria 0 /HPF (0-FEW) Urine Mucus Mod /LPF Urine Opiates Screen Neg (NEG) Urine Methadone Screen Neg (NEG) Urine Barbiturates Neg (NEG) Urine Phencyclidine Screen Neg (NEG) Urine Amphetamine/Methamphetamine Neg (NEG) Urine Benzodiazepines Screen Neg (NEG) Urine Cocaine Screen Neg (NEG) Urine Cannabinoids Screen Neg (NEG) Urine Ethyl Alcohol Neg (NEG) Test 08/18/18 11:47 08/18/18 13:00 08/18/18 13:30 08/18/18 15:30 Bedside Hemoglobin 13.6 g/dL (14-18) Bedside Hematocrit 40 % (37-52) Bedside Sodium 140 mmol/L (135-145) Bedside Potassium 4.1 mmol/L (3.5-5.0) Bedside Chloride 103 mmol/L (98-110) Bedside Total CO2 25 mmol/L (23-32) Anion Gap 16 mmol/L (6-14) Bedside Blood Urea Nitrogen 15 mg/dL (8-26) Bedside Creatinine 0.7 mg/dL (0.5-1.4) Glucose Level 340 mg/dL (70-99) Bedside Ionized Calcium (Caterina) 1.19 mmol/L (1.13-1.32) Prothrombin Time 13.2 SEC (11.7-14.0) Prothromb Time International Ratio 1.1 (0.8-1.1) Activated Partial Thromboplast Time 24 SEC (24-38) O2 Saturation 95 % (92-99) Arterial Blood pH 7.30 (7.35-7.45) Arterial Blood pCO2 at Patient Temp 48 mmHg (35-46) Arterial Blood pO2 at Patient Temp 87 mmHg (75-108) Arterial Blood HCO3 23 mmol/L (21-28) Arterial Blood Base Excess -3 mmol/L (-3-3) FiO2 40 CSF Color Colorless CSF Clarity Clear CSF WBC 2 CSF RBC 0 CSF Glucose 163 mg/dL (37-70) CSF Total Protein 39.6 mg/dL (15.0-45.0) Test 08/18/18 18:41 Glucose (Fingerstick) 253 mg/dL (70-99) Impression . DICTATED SYNCOPE/RESP FAILURE WILL RULE OUT PE SEE ORDERS SPOKE WITH AND SON UTE GANDHI MD Aug 18, 2018 19:16
[2018-08-18] MEDS ORDERED: CHLORHEXIDINE 0.12% 15 ML MOUTHWASH. MM SCH (21:00)
[2018-08-19] VITALS (24 sets, daily range): BP systolic 97–138; BP diastolic 61–91
[2018-08-19] MEDS: PROPOFOL 100 ML IV PRN ×3 (00:36→06:12)
--- NOTE | 2018-08-19 01:12 | CONS ---
DATE OF CONSULTATION: 08/18/2018 ATTENDING PHYSICIAN: Grabiel Wellington D.O. REASON FOR CONSULTATION: The patient is seen in pulmonary consultation at the request of Dr. Wellington for vent management. HISTORY OF PRESENT ILLNESS: The patient is a 42-year old who basically is in good health except for type 2 diabetes, was doing well up until today and according to his not complaining of any shortness of breath or chest pain or pressure in the last 24-48 hours. He presented to the Emergency Room, he was normal at 8:30 this morning. According to EMS report, family members heard him fall. They found him basically obtunded on the floor. EMS arrived, found the patient to be breathing approximately 6 breaths per minute. There were assisted ventilation. Blood glucose was 400. An IV was started and IV fluids were infused. Upon arrival to the Emergency Department, the patient continued to be obtunded and nonresponsive. He did have some movements of his upper extremities. There was some concern about decorticate posturing, but he was moving all extremities. His pupils were slightly dilated and sluggish to react. A cervical collar had been placed by EMS and the patient was intubated for airway protection. Since admission, he has had multiple studies including a brain MRI, which revealed no acute abnormalities. Lumbar puncture was performed. A neck and head CTA revealed no carotid or vertebral occlusions. No major intracranial occlusions were identified. He had a CT head without contrast, which showed no acute abnormalities. CT head of the cervical spine without contrast revealed no acute bony abnormalities. Chest x-ray revealed reveals some pulmonary vascular congestion. His labs were reviewed. White count was normal. Hemoglobin and hematocrit were noted. Arterial blood gas revealed a pH of 7.30, PaCO2 of 48 and PaO2 of 87. Initially, his pH was 7.28 with a pCO2 of 55. INR was 1.1. Electrolytes were noted. BUN and creatinine were normal. CPK was normal. Magnesium was normal. AST and ALT were normal. Toxicology screen was negative. Acetone level was negative. UA was noted. PAST MEDICAL HISTORY: Type 2 diabetes and history of IRIS, noncompliant with CPAP. PAST SURGICAL HISTORY: No recent major surgeries. FAMILY HISTORY: Coronary artery disease. SOCIAL HISTORY: Socially, he is . Smokes a pipe on and off. 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 There is no history of alcohol, tobacco or drug use. REVIEW OF SYSTEMS: Unobtainable secondary to the patient's condition. PHYSICAL EXAMINATION: GENERAL: The patient was in the Intensive Care Unit. VITAL SIGNS: Have been stable. O2 saturation greater than 92%. He is currently being sedated. HEENT: Eyes, pupils were equal, sluggish to react. NECK: He had a cervical spine in place. CHEST: Full expansion. LUNGS: Adequate airway flow with no wheezes. CARDIOVASCULAR: Regular rate and rhythm with S1 and S2. No S3. ABDOMEN: Soft and obese. EXTREMITIES: No clubbing, cyanosis or edema. NEUROLOGICAL: The patient was sedated. LABORATORY DATA: Labs as indicated above. RADIOLOGICAL DATA: Chest x-ray and diagnostic studies as indicated above. IMPRESSION: 1. Acute respiratory failure. This patient intubated for airway protection in the Emergency Room. 2. Syncopal episode at home, etiology unclear, rule out cardiac versus pulmonary embolism versus neurologic cause. 3. Type 2 diabetes. 4. Elevated blood sugar. 5. Mild respiratory acidosis. 6. Suspect obstructive sleep apnea. PLAN: 1. We will continue mechanical ventilation until workup is complete. 2. Obtain CT chest with PE protocol. 3. Consult Cardiology. 4. Follow Neurology input. I do appreciate the privilege in sharing in the patient's care. UTE GANDHI MD DR: ANABELLA/olivia JOB#: [id number] / [id number]
[2018-08-19] MEDS ORDERED: fentaNYL PF VIAL 100 MCG/2 ML VIAL IV PRN ×2 (02:45)
[2018-08-19 07:41] LABS: BASE EXCESS ABG 1 mmol/L (-3-3); HCO3 ABG 25 mmol/L (21-28); PCO2 ABG 42 mmHg (35-46); PO2 ABG 87 mmHg (75-108); SAT O2 ABG 96 % (92-99)
[2018-08-19 07:45] LABS: FIO2 ABG 40
[2018-08-19] MEDS ORDERED: INSULIN LISPRO 300 UNITS/3 ML INSULN.PEN. SQ SCH (08:00)
[2018-08-19] MEDS ORDERED: ACETAMINOPHEN 500 MG TABLET PO PRN (08:00)
[2018-08-19] MEDS ORDERED: ONDANSETRON ODT 4 MG TAB.RAPDIS. PO PRN (08:00)
[2018-08-19] MEDS ORDERED: ONDANSETRON PF 4 MG/2 ML VIAL. IV PRN (08:00)
[2018-08-19] MEDS ORDERED: PANTOPRAZOLE IV PUSH 40 MG VIAL. IVP ONE (08:00)
--- NOTE | 2018-08-19 09:13 | PDOC ---
PROGRESS NOTES Chief Complaint Chief Complaint 1. Acute respiratory failure. This patient intubated for airway protection in the Emergency Room. 2. Syncopal episode at home, etiology unclear,cardiac and neurologic causes seem to be negative-most likely hyperglycemia-blood sugar was 700 3. Type 2 diabetes hemoglobin A1c a month ago was 7+? 4. Elevated blood sugar. 5. Mild respiratory acidosis. 6. Suspect obstructive sleep apnea. 7. Obesity, BMI 36 History of Present Illness History of Present Illness On imaging is negative for any PE, pneumonia, or any cardiac/neuro causes of syncope LP also done, seemingly neg MRI brain neg CTA chest, abd .pelvis no PE, no stenosis or carotid occlusions Blood sugar was 700 on admission EEG is also negative Patient was not protecting airway hence intubated electively ABG today is good - off propofol for 2 hours and is following commands. Vital signs remain stable-agree with planning of extubation today We will check hemoglobin A1c, at bedside relays maybe a hemoglobin A1c [address] Leon Good urine output Labs better TSH is 8 EEG otherwise negative Plan, Agree with extubation Check hemoglobin A1c Sliding-scale insulin Was never on insulin, only OHA DVT prophylaxis PT OT when extubated dw multiple fam members at bedside Vitals Vitals Vital Signs Date Time Temp Pulse Resp B/P (MAP) Pulse Ox O2 Delivery O2 Flow Rate FiO2 08/19/18 07:22 100 Ventilator 08/19/18 06:00 71 18 100/61 (74) 08/19/18 04:00 97.8 97.8 Physical Exam General: No acute distress, Other (intubated still mildly sedated but follow simple commands) Heart: Regular rate, Normal S1, Normal S2 Lungs: Clear Abdomen: Normal bowel sounds Extremities: No clubbing, No cyanosis Skin: No rashes, No breakdown Labs LABS Laboratory Tests Test 08/18/18 11:37 08/18/18 11:38 08/18/18 11:40 08/18/18 11:42 O2 Saturation 98 % (92-99) Arterial Blood pH 7.28 (7.35-7.45) Arterial Blood pCO2 at Patient Temp 55 mmHg (35-46) Arterial Blood pO2 at Patient Temp 180 mmHg (75-108) Arterial Blood HCO3 26 mmol/L (21-28) Arterial Blood Base Excess -2 mmol/L (-3-3) FiO2 80 Glucose (Fingerstick) 343 mg/dL (70-99) White Blood Count 9.5 x10^3/uL (4.0-11.0) Red Blood Count 4.55 x10^6/uL (4.30-5.70) Hemoglobin 14.4 g/dL (13.0-17.5) Hematocrit 41.9 % (39.0-53.0) Mean Corpuscular Volume 92 fL (79-100) Mean Corpuscular Hemoglobin 32 pg (25-35) Mean Corpuscular Hemoglobin Concent 34 g/dL (31-37) Red Cell Distribution Width 13.3 % (11.5-14.5) Platelet Count 189 x10^3/uL (140-400) Neutrophils (%) (Auto) 74 % (31-73) Lymphocytes (%) (Auto) 20 % (24-48) Monocytes (%) (Auto) 5 % (0-9) Eosinophils (%) (Auto) 0 % (0-3) Basophils (%) (Auto) 1 % (0-3) Neutrophils # (Auto) 7.0 x10^3uL (1.8-7.7) Lymphocytes # (Auto) 1.9 x10^3/uL (1.0-4.8) Monocytes # (Auto) 0.5 x10^3/uL (0.0-1.1) Eosinophils # (Auto) 0.0 x10^3/uL (0.0-0.7) Basophils # (Auto) 0.0 x10^3/uL (0.0-0.2) Platelet Estimate Adequate (ADEQUATE) Sodium Level 139 mmol/L (136-145) Potassium Level 3.9 mmol/L (3.5-5.1) Chloride Level 103 mmol/L (98-107) Carbon Dioxide Level 24 mmol/L (21-32) Anion Gap 12 (6-14) Blood Urea Nitrogen 14 mg/dL (8-26) Creatinine 1.0 mg/dL (0.7-1.3) Estimated GFR (Cockcroft-Gault) 81.9 BUN/Creatinine Ratio 14 (6-20) Glucose Level 343 mg/dL (70-99) Lactic Acid Level 1.2 mmol/L (0.4-2.0) Calcium Level 9.5 mg/dL (8.5-10.1) Magnesium Level 1.8 mg/dL (1.8-2.4) Total Bilirubin 0.2 mg/dL (0.2-1.0) Aspartate Amino Transf (AST/SGOT) 19 U/L (15-37) Alanine Aminotransferase (ALT/SGPT) 49 U/L (16-63) Alkaline Phosphatase 88 U/L (46-116) Creatine Kinase 67 U/L (39-308) Creatine Kinase MB (Mass) 0.5 ng/mL (0.0-3.6) Creatine Kinase MB Relative Index % (0-4) Troponin I Quantitative < 0.017 ng/mL (0.000-0.055) GR-Aav-U-Type Natriuretic Peptide 7 pg/mL (0-124) Total Protein 7.5 g/dL (6.4-8.2) Albumin 3.8 g/dL (3.4-5.0) Albumin/Globulin Ratio 1.0 (1.0-1.7) Lipase 88 U/L (73-393) Thyroid Stimulating Hormone (TSH) 8.020 uIU/mL (0.358-3.74) Free Thyroxine 0.90 ng/dL (0.76-1.46) Acetone Level Neg (NEG) Urine Collection Type Unknown Urine Color Yellow Urine Clarity Clear Urine pH 5.5 Urine Specific Cranberry 1.020 Urine Protein Negative mg/dL (NEG-TRACE) Urine Glucose (UA) >=1000 mg/dL (NEG) Urine Ketones (Stick) Negative mg/dL (NEG) Urine Blood Negative (NEG) Urine Nitrite Negative (NEG) Urine Bilirubin Negative (NEG) Urine Urobilinogen Dipstick 0.2 mg/dL (0.2 mg/dL) Urine Leukocyte Esterase Negative (NEG) Urine RBC 0 /HPF (0-2) Urine WBC Occ /HPF (0-4) Urine Bacteria 0 /HPF (0-FEW) Urine Mucus Mod /LPF Urine Opiates Screen Neg (NEG) Urine Methadone Screen Neg (NEG) Urine Barbiturates Neg (NEG) Urine Phencyclidine Screen Neg (NEG) Urine Amphetamine/Methamphetamine Neg (NEG) Urine Benzodiazepines Screen Neg (NEG) Urine Cocaine Screen Neg (NEG) Urine Cannabinoids Screen Neg (NEG) Urine Ethyl Alcohol Neg (NEG) Test 08/18/18 11:47 08/18/18 13:00 08/18/18 13:30 08/18/18 15:30 Bedside Hemoglobin 13.6 g/dL (14-18) Bedside Hematocrit 40 % (37-52) Bedside Sodium 140 mmol/L (135-145) Bedside Potassium 4.1 mmol/L (3.5-5.0) Bedside Chloride 103 mmol/L (98-110) Bedside Total CO2 25 mmol/L (23-32) Anion Gap 16 mmol/L (6-14) Bedside Blood Urea Nitrogen 15 mg/dL (8-26) Bedside Creatinine 0.7 mg/dL (0.5-1.4) Glucose Level 340 mg/dL (70-99) Bedside Ionized Calcium (Caterina) 1.19 mmol/L (1.13-1.32) Prothrombin Time 13.2 SEC (11.7-14.0) Prothromb Time International Ratio 1.1 (0.8-1.1) Activated Partial Thromboplast Time 24 SEC (24-38) O2 Saturation 95 % (92-99) Arterial Blood pH 7.30 (7.35-7.45) Arterial Blood pCO2 at Patient Temp 48 mmHg (35-46) Arterial Blood pO2 at Patient Temp 87 mmHg (75-108) Arterial Blood HCO3 23 mmol/L (21-28) Arterial Blood Base Excess -3 mmol/L (-3-3) FiO2 40 CSF Color Colorless CSF Clarity Clear CSF WBC 2 CSF RBC 0 CSF Glucose 163 mg/dL (37-70) CSF Total Protein 39.6 mg/dL (15.0-45.0) Test 08/18/18 18:41 08/19/18 07:30 08/19/18 08:23 Glucose (Fingerstick) 253 mg/dL (70-99) 196 mg/dL (70-99) O2 Saturation 96 % (92-99) Arterial Blood pH 7.40 (7.35-7.45) Arterial Blood pCO2 at Patient Temp 42 mmHg (35-46) Arterial Blood pO2 at Patient Temp 87 mmHg (75-108) Arterial Blood HCO3 25 mmol/L (21-28) Arterial Blood Base Excess 1 mmol/L (-3-3) FiO2 40 Assessment and Plan Assessmemt and Plan Problems Medical Problems: (1) Altered mental status Status: Acute (2) Respiratory failure Status: Acute Comment Review of Relevant I have reviewed the following items brandan (where applicable) has been applied. Labs Laboratory Tests Test 08/18/18 11:37 08/18/18 11:38 08/18/18 11:40 08/18/18 11:42 O2 Saturation 98 % (92-99) Arterial Blood pH 7.28 (7.35-7.45) Arterial Blood pCO2 at Patient Temp 55 mmHg (35-46) Arterial Blood pO2 at Patient Temp 180 mmHg (75-108) Arterial Blood HCO3 26 mmol/L (21-28) Arterial Blood Base Excess -2 mmol/L (-3-3) FiO2 80 Glucose (Fingerstick) 343 mg/dL (70-99) White Blood Count 9.5 x10^3/uL (4.0-11.0) Red Blood Count 4.55 x10^6/uL (4.30-5.70) Hemoglobin 14.4 g/dL (13.0-17.5) Hematocrit 41.9 % (39.0-53.0) Mean Corpuscular Volume 92 fL (79-100) Mean Corpuscular Hemoglobin 32 pg (25-35) Mean Corpuscular Hemoglobin Concent 34 g/dL (31-37) Red Cell Distribution Width 13.3 % (11.5-14.5) Platelet Count 189 x10^3/uL (140-400) Neutrophils (%) (Auto) 74 % (31-73) Lymphocytes (%) (Auto) 20 % (24-48) Monocytes (%) (Auto) 5 % (0-9) Eosinophils (%) (Auto) 0 % (0-3) Basophils (%) (Auto) 1 % (0-3) Neutrophils # (Auto) 7.0 x10^3uL (1.8-7.7) Lymphocytes # (Auto) 1.9 x10^3/uL (1.0-4.8) Monocytes # (Auto) 0.5 x10^3/uL (0.0-1.1) Eosinophils # (Auto) 0.0 x10^3/uL (0.0-0.7) Basophils # (Auto) 0.0 x10^3/uL (0.0-0.2) Platelet Estimate Adequate (ADEQUATE) Sodium Level 139 mmol/L (136-145) Potassium Level 3.9 mmol/L (3.5-5.1) Chloride Level 103 mmol/L (98-107) Carbon Dioxide Level 24 mmol/L (21-32) Anion Gap 12 (6-14) Blood Urea Nitrogen 14 mg/dL (8-26) Creatinine 1.0 mg/dL (0.7-1.3) Estimated GFR (Cockcroft-Gault) 81.9 BUN/Creatinine Ratio 14 (6-20) Glucose Level 343 mg/dL (70-99) Lactic Acid Level 1.2 mmol/L (0.4-2.0) Calcium Level 9.5 mg/dL (8.5-10.1) Magnesium Level 1.8 mg/dL (1.8-2.4) Total Bilirubin 0.2 mg/dL (0.2-1.0) Aspartate Amino Transf (AST/SGOT) 19 U/L (15-37) Alanine Aminotransferase (ALT/SGPT) 49 U/L (16-63) Alkaline Phosphatase 88 U/L (46-116) Creatine Kinase 67 U/L (39-308) Creatine Kinase MB (Mass) 0.5 ng/mL (0.0-3.6) Creatine Kinase MB Relative Index % (0-4) Troponin I Quantitative < 0.017 ng/mL (0.000-0.055) XU-Aft-Y-Type Natriuretic Peptide 7 pg/mL (0-124) Total Protein 7.5 g/dL (6.4-8.2) Albumin 3.8 g/dL (3.4-5.0) Albumin/Globulin Ratio 1.0 (1.0-1.7) Lipase 88 U/L (73-393) Thyroid Stimulating Hormone (TSH) 8.020 uIU/mL (0.358-3.74) Free Thyroxine 0.90 ng/dL (0.76-1.46) Acetone Level Neg (NEG) Urine Collection Type Unknown Urine Color Yellow Urine Clarity Clear Urine pH 5.5 Urine Specific Cranberry 1.020 Urine Protein Negative mg/dL (NEG-TRACE) Urine Glucose (UA) >=1000 mg/dL (NEG) Urine Ketones (Stick) Negative mg/dL (NEG) Urine Blood Negative (NEG) Urine Nitrite Negative (NEG) Urine Bilirubin Negative (NEG) Urine Urobilinogen Dipstick 0.2 mg/dL (0.2 mg/dL) Urine Leukocyte Esterase Negative (NEG) Urine RBC 0 /HPF (0-2) Urine WBC Occ /HPF (0-4) Urine Bacteria 0 /HPF (0-FEW) Urine Mucus Mod /LPF Urine Opiates Screen Neg (NEG) Urine Methadone Screen Neg (NEG) Urine Barbiturates Neg (NEG) Urine Phencyclidine Screen Neg (NEG) Urine Amphetamine/Methamphetamine Neg (NEG) Urine Benzodiazepines Screen Neg (NEG) Urine Cocaine Screen Neg (NEG) Urine Cannabinoids Screen Neg (NEG) Urine Ethyl Alcohol Neg (NEG) Test 08/18/18 11:47 08/18/18 13:00 08/18/18 13:30 08/18/18 15:30 Bedside Hemoglobin 13.6 g/dL (14-18) Bedside Hematocrit 40 % (37-52) Bedside Sodium 140 mmol/L (135-145) Bedside Potassium 4.1 mmol/L (3.5-5.0) Bedside Chloride 103 mmol/L (98-110) Bedside Total CO2 25 mmol/L (23-32) Anion Gap 16 mmol/L (6-14) Bedside Blood Urea Nitrogen 15 mg/dL (8-26) Bedside Creatinine 0.7 mg/dL (0.5-1.4) Glucose Level 340 mg/dL (70-99) Bedside Ionized Calcium (Caterina) 1.19 mmol/L (1.13-1.32) Prothrombin Time 13.2 SEC (11.7-14.0) Prothromb Time International Ratio 1.1 (0.8-1.1) Activated Partial Thromboplast Time 24 SEC (24-38) O2 Saturation 95 % (92-99) Arterial Blood pH 7.30 (7.35-7.45) Arterial Blood pCO2 at Patient Temp 48 mmHg (35-46) Arterial Blood pO2 at Patient Temp 87 mmHg (75-108) Arterial Blood HCO3 23 mmol/L (21-28) Arterial Blood Base Excess -3 mmol/L (-3-3) FiO2 40 CSF Color Colorless CSF Clarity Clear CSF WBC 2 CSF RBC 0 CSF Glucose 163 mg/dL (37-70) CSF Total Protein 39.6 mg/dL (15.0-45.0) Test 08/18/18 18:41 08/19/18 07:30 08/19/18 08:23 Glucose (Fingerstick) 253 mg/dL (70-99) 196 mg/dL (70-99) O2 Saturation 96 % (92-99) Arterial Blood pH 7.40 (7.35-7.45) Arterial Blood pCO2 at Patient Temp 42 mmHg (35-46) Arterial Blood pO2 at Patient Temp 87 mmHg (75-108) Arterial Blood HCO3 25 mmol/L (21-28) Arterial Blood Base Excess 1 mmol/L (-3-3) FiO2 40 Laboratory Tests Test 08/18/18 11:37 08/18/18 11:38 08/18/18 11:40 08/18/18 11:42 O2 Saturation 98 % (92-99) Arterial Blood pH 7.28 (7.35-7.45) Arterial Blood pCO2 at Patient Temp 55 mmHg (35-46) Arterial Blood pO2 at Patient Temp 180 mmHg (75-108) Arterial Blood HCO3 26 mmol/L (21-28) Arterial Blood Base Excess -2 mmol/L (-3-3) FiO2 80 Glucose (Fingerstick) 343 mg/dL (70-99) White Blood Count 9.5 x10^3/uL (4.0-11.0) Red Blood Count 4.55 x10^6/uL (4.30-5.70) Hemoglobin 14.4 g/dL (13.0-17.5) Hematocrit 41.9 % (39.0-53.0) Mean Corpuscular Volume 92 fL (79-100) Mean Corpuscular Hemoglobin 32 pg (25-35) Mean Corpuscular Hemoglobin Concent 34 g/dL (31-37) Red Cell Distribution Width 13.3 % (11.5-14.5) Platelet Count 189 x10^3/uL (140-400) Neutrophils (%) (Auto) 74 % (31-73) Lymphocytes (%) (Auto) 20 % (24-48) Monocytes (%) (Auto) 5 % (0-9) Eosinophils (%) (Auto) 0 % (0-3) Basophils (%) (Auto) 1 % (0-3) Neutrophils # (Auto) 7.0 x10^3uL (1.8-7.7) Lymphocytes # (Auto) 1.9 x10^3/uL (1.0-4.8) Monocytes # (Auto) 0.5 x10^3/uL (0.0-1.1) Eosinophils # (Auto) 0.0 x10^3/uL (0.0-0.7) Basophils # (Auto) 0.0 x10^3/uL (0.0-0.2) Platelet Estimate Adequate (ADEQUATE) Sodium Level 139 mmol/L (136-145) Potassium Level 3.9 mmol/L (3.5-5.1) Chloride Level 103 mmol/L (98-107) Carbon Dioxide Level 24 mmol/L (21-32) Anion Gap 12 (6-14) Blood Urea Nitrogen 14 mg/dL (8-26) Creatinine 1.0 mg/dL (0.7-1.3) Estimated GFR (Cockcroft-Gault) 81.9 BUN/Creatinine Ratio 14 (6-20) Glucose Level 343 mg/dL (70-99) Lactic Acid Level 1.2 mmol/L (0.4-2.0) Calcium Level 9.5 mg/dL (8.5-10.1) Magnesium Level 1.8 mg/dL (1.8-2.4) Total Bilirubin 0.2 mg/dL (0.2-1.0) Aspartate Amino Transf (AST/SGOT) 19 U/L (15-37) Alanine Aminotransferase (ALT/SGPT) 49 U/L (16-63) Alkaline Phosphatase 88 U/L (46-116) Creatine Kinase 67 U/L (39-308) Creatine Kinase MB (Mass) 0.5 ng/mL (0.0-3.6) Creatine Kinase MB Relative Index % (0-4) Troponin I Quantitative < 0.017 ng/mL (0.000-0.055) FB-Snp-T-Type Natriuretic Peptide 7 pg/mL (0-124) Total Protein 7.5 g/dL (6.4-8.2) Albumin 3.8 g/dL (3.4-5.0) Albumin/Globulin Ratio 1.0 (1.0-1.7) Lipase 88 U/L (73-393) Thyroid Stimulating Hormone (TSH) 8.020 uIU/mL (0.358-3.74) Free Thyroxine 0.90 ng/dL (0.76-1.46) Acetone Level Neg (NEG) Urine Collection Type Unknown Urine Color Yellow Urine Clarity Clear Urine pH 5.5 Urine Specific Cranberry 1.020 Urine Protein Negative mg/dL (NEG-TRACE) Urine Glucose (UA) >=1000 mg/dL (NEG) Urine Ketones (Stick) Negative mg/dL (NEG) Urine Blood Negative (NEG) Urine Nitrite Negative (NEG) Urine Bilirubin Negative (NEG) Urine Urobilinogen Dipstick 0.2 mg/dL (0.2 mg/dL) Urine Leukocyte Esterase Negative (NEG) Urine RBC 0 /HPF (0-2) Urine WBC Occ /HPF (0-4) Urine Bacteria 0 /HPF (0-FEW) Urine Mucus Mod /LPF Urine Opiates Screen Neg (NEG) Urine Methadone Screen Neg (NEG) Urine Barbiturates Neg (NEG) Urine Phencyclidine Screen Neg (NEG) Urine Amphetamine/Methamphetamine Neg (NEG) Urine Benzodiazepines Screen Neg (NEG) Urine Cocaine Screen Neg (NEG) Urine Cannabinoids Screen Neg (NEG) Urine Ethyl Alcohol Neg (NEG) Test 08/18/18 11:47 08/18/18 13:00 08/18/18 13:30 08/18/18 15:30 Bedside Hemoglobin 13.6 g/dL (14-18) Bedside Hematocrit 40 % (37-52) Bedside Sodium 140 mmol/L (135-145) Bedside Potassium 4.1 mmol/L (3.5-5.0) Bedside Chloride 103 mmol/L (98-110) Bedside Total CO2 25 mmol/L (23-32) Anion Gap 16 mmol/L (6-14) Bedside Blood Urea Nitrogen 15 mg/dL (8-26) Bedside Creatinine 0.7 mg/dL (0.5-1.4) Glucose Level 340 mg/dL (70-99) Bedside Ionized Calcium (Caterina) 1.19 mmol/L (1.13-1.32) Prothrombin Time 13.2 SEC (11.7-14.0) Prothromb Time International Ratio 1.1 (0.8-1.1) Activated Partial Thromboplast Time 24 SEC (24-38) O2 Saturation 95 % (92-99) Arterial Blood pH 7.30 (7.35-7.45) Arterial Blood pCO2 at Patient Temp 48 mmHg (35-46) Arterial Blood pO2 at Patient Temp 87 mmHg (75-108) Arterial Blood HCO3 23 mmol/L (21-28) Arterial Blood Base Excess -3 mmol/L (-3-3) FiO2 40 CSF Color Colorless CSF Clarity Clear CSF WBC 2 CSF RBC 0 CSF Glucose 163 mg/dL (37-70) CSF Total Protein 39.6 mg/dL (15.0-45.0) Test 08/18/18 18:41 08/19/18 07:30 08/19/18 08:23 Glucose (Fingerstick) 253 mg/dL (70-99) 196 mg/dL (70-99) O2 Saturation 96 % (92-99) Arterial Blood pH 7.40 (7.35-7.45) Arterial Blood pCO2 at Patient Temp 42 mmHg (35-46) Arterial Blood pO2 at Patient Temp 87 mmHg (75-108) Arterial Blood HCO3 25 mmol/L (21-28) Arterial Blood Base Excess 1 mmol/L (-3-3) FiO2 40 Medications Current Medications Propofol 50 ml @ As Directed STK-MED ONCE IV ; Start 08/18/18 at 11:38; Stop 08/18/18 at 17:42; Status DC Sodium Chloride 1,000 ml @ 1,000 mls/hr 1X ONCE IV Last administered on 08/18at 12:04; Start 08/18/18 at 11:45; Stop 08/18/18 at 12:44; Status DC Sodium Chloride 1,000 ml @ 1,000 mls/hr 1X ONCE IV Last administered on 08/18at 12:40; Start 08/18/18 at 11:45; Stop 08/18/18 at 12:44; Status DC Rocuronium [place] (Zemuron) 100 mg 1X ONCE IV Last administered on at 11:33; Start 08/18/18 at 11:45; Stop 08/18/18 at 12:13; Status DC Etomidate (Amidate) 20 mg 1X ONCE IV Last administered on 08/18/18at 12:02; Start 08/18/18 at 11:45; Stop 08/18/18 at 12:13; Status DC Iohexol (Omnipaque 300 Mg/ml) 75 ml 1X ONCE IV ; Start 08/18/18 at 12:15; Stop 08/18/18 at 12:16; Status DC Propofol 50 ml @ 0 mls/hr 1X ONCE IV Last administered on 08/18/18at 11:49; Start 08/18/18 at 12:30; Stop 08/18/18 at 17:42; Status DC Naloxone HCl (Narcan) 0.4 mg STK-MED ONCE .ROUTE ; Start 08/18/18 at 13:20; Stop 08/18/18 at 13:21; Status DC Naloxone HCl (Narcan) 0.4 mg 1X ONCE IV Last administered on 08/18/18at 13:22 ; Start 08/18/18 at 13:45; Stop 08/18/18 at 13:46; Status DC Lidocaine/Sodium Bicarbonate (Buffered Lidocaine 1%) 6 ml 1X ONCE INJ Last administered on 08/18/18at 14:45; Start 08/18/18 at 14:45; Stop 08/18/18 at 14 :46; Status DC Propofol 100 ml @ As Directed STK-MED ONCE IV ; Start 08/18/18 at 14:37; Stop 08/18/18 at 17:42; Status DC Iohexol (Omnipaque 300 Mg/ml) 90 ml 1X ONCE IV Last administered on at 17:20; Start 08/18/18 at 17:15; Stop 08/18/18 at 17:20; Status DC Info (CONTRAST GIVEN -- Rx MONITORING) 1 each PRN DAILY PRN MC SEE COMMENTS; Start 08/18/18 at 17:15; Stop 08/20/18 at 17:14 Sodium Chloride 1,000 ml @ 100 mls/hr Q10H IV Last administered on 08/18/18at 18:27; Start 08/18/18 at 18:00 Propofol 100 ml @ 0 mls/hr CONT PRN IV PER PROTOCOL Last administered on at 06:12; Start 08/18/18 at 18:00 Chlorhexidine Gluconate (Peridex) 15 ml BID MM ; Start 08/18/18 at 21:00; Stop 08/18/18 at 21:00; Status DC Insulin Human Lispro (HumaLOG) 0-7 UNITS TIDWMEALS SQ ; Start 08/19/18 at 08:00 Dextrose (Dextrose 50%-Water Syringe) 12.5 gm PRN Q15MIN PRN IV SEE COMMENTS; Start 08/18/18 at 18:45 Fentanyl Citrate (Fentanyl 2ml Vial) 50 mcg PRN Q2HR PRN IV SEVERE PAIN Last administered on 08/19/18at 03:00; Start 08/19/18 at 02:45 Fentanyl Citrate (Fentanyl 2ml Vial) 25 mcg PRN Q2HR PRN IV MODERATE PAIN; Start 08/19/18 at 02:45 Ondansetron HCl (Zofran) 4 mg PRN Q6HRS PRN IV NAUSEA/VOMITING 1ST CHOICE; Start 08/19/18 at 08:00 Ondansetron HCl (Zofran Odt) 4 mg PRN Q6HRS PRN PO NAUSEA/VOMITING 1ST CHOICE; Start 08/19/18 at 08:00 Acetaminophen (Tylenol) 500 mg PRN Q6HRS PRN PO MILD PAIN / TEMP; Start at 08:00 Enoxaparin Sodium (Lovenox 40mg Syringe) 40 mg Q24H SQ ; Start 08/19/18 at 09: 00 Pantoprazole Sodium (PROTONIX VIAL for IV PUSH) 40 mg DAILYAC IVP ; Start 08/20 at 07:30 Pantoprazole Sodium (PROTONIX VIAL for IV PUSH) 40 mg 1X ONCE IVP ; Start 09/26 at 08:00; Stop 08/19/18 at 08:01; Status DC Propofol (Diprivan) 1,000 mg STK-MED ONCE IV ; Start 08/18/18 at 15:00; Stop 08/19/18 at 08:29; Status DC Vitals/I & O Vital Sign - Last 24 Hours 08/18/18 08/18/18 08/18/18 08/18/18 11:35 11:35 11:40 11:45 Temp 96.8 96.4 96.8 96.4 Pulse 133 135 114 115 Resp 14 20 B/P (MAP) 175/116 (135) Pulse Ox 99 97 100 100 O2 Delivery Bag Valve Mask 08/18/18 08/18/18 08/18/18 08/18/18 11:50 11:55 11:56 12:00 Pulse 122 113 116 Pulse Ox 100 100 100 100 O2 Delivery Ventilator 08/18/18 08/18/18 08/18/18 08/18/18 12:05 12:10 12:20 12:30 Pulse 113 115 125 98 Pulse Ox 100 100 100 100 08/18/18 08/18/18 08/18/18 08/18/18 12:35 12:40 12:45 12:50 Pulse 118 119 99 106 Pulse Ox 100 100 100 100 08/18/18 08/18/18 08/18/18 08/18/18 12:55 13:00 13:05 13:10 Pulse 117 105 99 113 Pulse Ox 100 100 100 100 08/18/18 08/18/18 08/18/18 08/18/18 13:15 13:20 13:20 13:25 Pulse 93 98 96 Pulse Ox 100 100 100 100 O2 Delivery Ventilator 08/18/18 08/18/18 08/18/18 08/18/18 13:30 13:35 13:40 13:45 Pulse 97 95 95 93 Pulse Ox 100 100 100 100 08/18/18 08/18/18 08/18/18 08/18/18 13:50 13:55 14:15 16:00 Temp 97.4 97.3 97.4 97.3 Pulse 94 95 93 98 Resp 18 18 B/P (MAP) 125/83 (97) 123/81 (95) Pulse Ox 100 100 100 100 O2 Delivery Ventilator Ventilator 08/18/18 08/18/18 08/18/18 08/18/18 16:00 17:33 18:00 19:00 Temp 97.4 97.4 Pulse 84 80 Resp 18 18 B/P (MAP) 96/63 (74) 99/54 (69) Pulse Ox 99 100 99 O2 Delivery Mechanical Ventilator Ventilator Ventilator Ventilator 08/18/18 08/18/18 08/18/18 08/18/18 19:59 20:00 20:00 21:00 Pulse 78 73 Resp 18 18 B/P (MAP) 106/62 (77) 100/63 (75) Pulse Ox 99 99 99 O2 Delivery Ventilator Mechanical Ventilator Ventilator Ventilator 08/18/18 08/18/18 08/18/18 08/18/18 22:00 23:00 23:24 23:59 Pulse 77 76 Resp 18 18 B/P (MAP) 97/61 (73) 106/66 (79) Pulse Ox 99 100 99 O2 Delivery Ventilator Ventilator Ventilator Mechanical Ventilator 08/19/18 08/19/18 08/19/18 08/19/18 00:00 01:00 01:12 02:00 Temp 97.2 97.2 Pulse 76 77 74 Resp 18 18 18 B/P (MAP) 97/63 (74) 106/77 (87) 107/68 (81) Pulse Ox 100 100 99 100 O2 Delivery Ventilator Ventilator Ventilator Ventilator 08/19/18 08/19/18 08/19/18 08/19/18 02:41 03:00 03:00 03:30 Pulse 71 Resp 18 18 18 B/P (MAP) 98/65 (76) Pulse Ox 99 100 100 100 O2 Delivery Ventilator Ventilator Ventilator Ventilator 08/19/18 08/19/18 08/19/18 08/19/18 03:56 04:00 05:00 05:19 Temp 97.8 97.8 Pulse 69 69 Resp 18 18 B/P (MAP) 106/64 (78) 104/69 (81) Pulse Ox 100 100 99 O2 Delivery Mechanical Ventilator Ventilator Ventilator Ventilator 08/19/18 08/19/18 06:00 07:22 Pulse 71 Resp 18 B/P (MAP) 100/61 (74) Pulse Ox 100 100 O2 Delivery Ventilator Ventilator Intake and Output 08/18/18 08/18/18 08/19/18 15:00 23:00 07:00 Intake Total 2000 ml 0 ml 1557 ml Output Total 700 ml 725 ml 810 ml Balance 1300 ml -725 ml 747 ml GLORY DAVID MD Aug 19, 2018 09:13
[2018-08-19] MEDS ORDERED: DEXTROSE 50% 25 GM / 50ML DISP.SYRIN. IV PRN (09:15)
[2018-08-19] MEDS: ENOXAPARIN 40 MG/0.4 ML SYRINGE. SQ SCH (10:20)
[2018-08-19] MEDS: IV NORMAL SALINE 1000ML BAG 1,000 ML IV SCH ×2 (10:20→20:17)
--- NOTE | 2018-08-19 10:30 | PDOC ---
PULMONARY PROGRESS NOTES Subjective PT SEEN ON TRIAL FOLLOW COMMANDS ABLE TO LIFT LEGS UP WITH NO PROBLEMS NO RESP DISTRESS Vitals Vital Signs Date Time Temp Pulse Resp B/P (MAP) Pulse Ox O2 Delivery O2 Flow Rate FiO2 08/19/18 09:07 100 Ventilator 08/19/18 09:00 75 18 102/67 (79) 08/19/18 08:00 97.6 97.6 General: Alert Lungs: Clear Cardiovascular: S1, S2 Abdomen: Soft, Other (OBESE) Neuro Exam: Alert Extremities: No Edema Skin: Warm Labs Laboratory Tests Test 08/18/18 11:37 08/18/18 11:38 08/18/18 11:40 08/18/18 11:42 O2 Saturation 98 % (92-99) Arterial Blood pH 7.28 (7.35-7.45) Arterial Blood pCO2 at Patient Temp 55 mmHg (35-46) Arterial Blood pO2 at Patient Temp 180 mmHg (75-108) Arterial Blood HCO3 26 mmol/L (21-28) Arterial Blood Base Excess -2 mmol/L (-3-3) FiO2 80 Glucose (Fingerstick) 343 mg/dL (70-99) White Blood Count 9.5 x10^3/uL (4.0-11.0) Red Blood Count 4.55 x10^6/uL (4.30-5.70) Hemoglobin 14.4 g/dL (13.0-17.5) Hematocrit 41.9 % (39.0-53.0) Mean Corpuscular Volume 92 fL (79-100) Mean Corpuscular Hemoglobin 32 pg (25-35) Mean Corpuscular Hemoglobin Concent 34 g/dL (31-37) Red Cell Distribution Width 13.3 % (11.5-14.5) Platelet Count 189 x10^3/uL (140-400) Neutrophils (%) (Auto) 74 % (31-73) Lymphocytes (%) (Auto) 20 % (24-48) Monocytes (%) (Auto) 5 % (0-9) Eosinophils (%) (Auto) 0 % (0-3) Basophils (%) (Auto) 1 % (0-3) Neutrophils # (Auto) 7.0 x10^3uL (1.8-7.7) Lymphocytes # (Auto) 1.9 x10^3/uL (1.0-4.8) Monocytes # (Auto) 0.5 x10^3/uL (0.0-1.1) Eosinophils # (Auto) 0.0 x10^3/uL (0.0-0.7) Basophils # (Auto) 0.0 x10^3/uL (0.0-0.2) Platelet Estimate Adequate (ADEQUATE) Sodium Level 139 mmol/L (136-145) Potassium Level 3.9 mmol/L (3.5-5.1) Chloride Level 103 mmol/L (98-107) Carbon Dioxide Level 24 mmol/L (21-32) Anion Gap 12 (6-14) Blood Urea Nitrogen 14 mg/dL (8-26) Creatinine 1.0 mg/dL (0.7-1.3) Estimated GFR (Cockcroft-Gault) 81.9 BUN/Creatinine Ratio 14 (6-20) Glucose Level 343 mg/dL (70-99) Lactic Acid Level 1.2 mmol/L (0.4-2.0) Calcium Level 9.5 mg/dL (8.5-10.1) Magnesium Level 1.8 mg/dL (1.8-2.4) Total Bilirubin 0.2 mg/dL (0.2-1.0) Aspartate Amino Transf (AST/SGOT) 19 U/L (15-37) Alanine Aminotransferase (ALT/SGPT) 49 U/L (16-63) Alkaline Phosphatase 88 U/L (46-116) Creatine Kinase 67 U/L (39-308) Creatine Kinase MB (Mass) 0.5 ng/mL (0.0-3.6) Creatine Kinase MB Relative Index % (0-4) Troponin I Quantitative < 0.017 ng/mL (0.000-0.055) RF-Hvm-[id number]-Type Natriuretic Peptide 7 pg/mL (0-124) Total Protein 7.5 g/dL (6.4-8.2) Albumin 3.8 g/dL (3.4-5.0) Albumin/Globulin Ratio 1.0 (1.0-1.7) Lipase 88 U/L (73-393) Thyroid Stimulating Hormone (TSH) 8.020 uIU/mL (0.358-3.74) Free Thyroxine 0.90 ng/dL (0.76-1.46) Acetone Level Neg (NEG) Urine Collection Type Unknown Urine Color Yellow Urine Clarity Clear Urine pH 5.5 Urine Specific [place] 1.020 Urine Protein Negative mg/dL (NEG-TRACE) Urine Glucose (UA) >=1000 mg/dL (NEG) Urine Ketones (Stick) Negative mg/dL (NEG) Urine Blood Negative (NEG) Urine Nitrite Negative (NEG) Urine Bilirubin Negative (NEG) Urine Urobilinogen Dipstick 0.2 mg/dL (0.2 mg/dL) Urine Leukocyte Esterase Negative (NEG) Urine RBC 0 /HPF (0-2) Urine WBC Occ /HPF (0-4) Urine Bacteria 0 /HPF (0-FEW) Urine Mucus Mod /LPF Urine Opiates Screen Neg (NEG) Urine Methadone Screen Neg (NEG) Urine Barbiturates Neg (NEG) Urine Phencyclidine Screen Neg (NEG) Urine Amphetamine/Methamphetamine Neg (NEG) Urine Benzodiazepines Screen Neg (NEG) Urine Cocaine Screen Neg (NEG) Urine Cannabinoids Screen Neg (NEG) Urine Ethyl Alcohol Neg (NEG) Test 08/18/18 11:47 08/18/18 13:00 08/18/18 13:30 08/18/18 15:30 Bedside Hemoglobin 13.6 g/dL (14-18) Bedside Hematocrit 40 % (37-52) Bedside Sodium 140 mmol/L (135-145) Bedside Potassium 4.1 mmol/L (3.5-5.0) Bedside Chloride 103 mmol/L (98-110) Bedside Total CO2 25 mmol/L (23-32) Anion Gap 16 mmol/L (6-14) Bedside Blood Urea Nitrogen 15 mg/dL (8-26) Bedside Creatinine 0.7 mg/dL (0.5-1.4) Glucose Level 340 mg/dL (70-99) Bedside Ionized Calcium (Caterina) 1.19 mmol/L (1.13-1.32) Prothrombin Time 13.2 SEC (11.7-14.0) Prothromb Time International Ratio 1.1 (0.8-1.1) Activated Partial Thromboplast Time 24 SEC (24-38) O2 Saturation 95 % (92-99) Arterial Blood pH 7.30 (7.35-7.45) Arterial Blood pCO2 at Patient Temp 48 mmHg (35-46) Arterial Blood pO2 at Patient Temp 87 mmHg (75-108) Arterial Blood HCO3 23 mmol/L (21-28) Arterial Blood Base Excess -3 mmol/L (-3-3) FiO2 40 CSF Color Colorless CSF Clarity Clear CSF WBC 2 CSF RBC 0 CSF Glucose 163 mg/dL (37-70) CSF Total Protein 39.6 mg/dL (15.0-45.0) Test 08/18/18 18:41 08/19/18 07:30 08/19/18 08:23 Glucose (Fingerstick) 253 mg/dL (70-99) 196 mg/dL (70-99) O2 Saturation 96 % (92-99) Arterial Blood pH 7.40 (7.35-7.45) Arterial Blood pCO2 at Patient Temp 42 mmHg (35-46) Arterial Blood pO2 at Patient Temp 87 mmHg (75-108) Arterial Blood HCO3 25 mmol/L (21-28) Arterial Blood Base Excess 1 mmol/L (-3-3) FiO2 40 Laboratory Tests Test 08/18/18 11:37 08/18/18 11:38 08/18/18 11:40 08/18/18 11:42 O2 Saturation 98 % (92-99) Arterial Blood pH 7.28 (7.35-7.45) Arterial Blood pCO2 at Patient Temp 55 mmHg (35-46) Arterial Blood pO2 at Patient Temp 180 mmHg (75-108) Arterial Blood HCO3 26 mmol/L (21-28) Arterial Blood Base Excess -2 mmol/L (-3-3) FiO2 80 Glucose (Fingerstick) 343 mg/dL (70-99) White Blood Count 9.5 x10^3/uL (4.0-11.0) Red Blood Count 4.55 x10^6/uL (4.30-5.70) Hemoglobin 14.4 g/dL (13.0-17.5) Hematocrit 41.9 % (39.0-53.0) Mean Corpuscular Volume 92 fL (79-100) Mean Corpuscular Hemoglobin 32 pg (25-35) Mean Corpuscular Hemoglobin Concent 34 g/dL (31-37) Red Cell Distribution Width 13.3 % (11.5-14.5) Platelet Count 189 x10^3/uL (140-400) Neutrophils (%) (Auto) 74 % (31-73) Lymphocytes (%) (Auto) 20 % (24-48) Monocytes (%) (Auto) 5 % (0-9) Eosinophils (%) (Auto) 0 % (0-3) Basophils (%) (Auto) 1 % (0-3) Neutrophils # (Auto) 7.0 x10^3uL (1.8-7.7) Lymphocytes # (Auto) 1.9 x10^3/uL (1.0-4.8) Monocytes # (Auto) 0.5 x10^3/uL (0.0-1.1) Eosinophils # (Auto) 0.0 x10^3/uL (0.0-0.7) Basophils # (Auto) 0.0 x10^3/uL (0.0-0.2) Platelet Estimate Adequate (ADEQUATE) Sodium Level 139 mmol/L (136-145) Potassium Level 3.9 mmol/L (3.5-5.1) Chloride Level 103 mmol/L (98-107) Carbon Dioxide Level 24 mmol/L (21-32) Anion Gap 12 (6-14) Blood Urea Nitrogen 14 mg/dL (8-26) Creatinine 1.0 mg/dL (0.7-1.3) Estimated GFR (Cockcroft-Gault) 81.9 BUN/Creatinine Ratio 14 (6-20) Glucose Level 343 mg/dL (70-99) Lactic Acid Level 1.2 mmol/L (0.4-2.0) Calcium Level 9.5 mg/dL (8.5-10.1) Magnesium Level 1.8 mg/dL (1.8-2.4) Total Bilirubin 0.2 mg/dL (0.2-1.0) Aspartate Amino Transf (AST/SGOT) 19 U/L (15-37) Alanine Aminotransferase (ALT/SGPT) 49 U/L (16-63) Alkaline Phosphatase 88 U/L (46-116) Creatine Kinase 67 U/L (39-308) Creatine Kinase MB (Mass) 0.5 ng/mL (0.0-3.6) Creatine Kinase MB Relative Index % (0-4) Troponin I Quantitative < 0.017 ng/mL (0.000-0.055) MB-Ubu-Y-Type Natriuretic Peptide 7 pg/mL (0-124) Total Protein 7.5 g/dL (6.4-8.2) Albumin 3.8 g/dL (3.4-5.0) Albumin/Globulin Ratio 1.0 (1.0-1.7) Lipase 88 U/L (73-393) Thyroid Stimulating Hormone (TSH) 8.020 uIU/mL (0.358-3.74) Free Thyroxine 0.90 ng/dL (0.76-1.46) Acetone Level Neg (NEG) Urine Collection Type Unknown Urine Color Yellow Urine Clarity Clear Urine pH 5.5 Urine Specific [place] 1.020 Urine Protein Negative mg/dL (NEG-TRACE) Urine Glucose (UA) >=1000 mg/dL (NEG) Urine Ketones (Stick) Negative mg/dL (NEG) Urine Blood Negative (NEG) Urine Nitrite Negative (NEG) Urine Bilirubin Negative (NEG) Urine Urobilinogen Dipstick 0.2 mg/dL (0.2 mg/dL) Urine Leukocyte Esterase Negative (NEG) Urine RBC 0 /HPF (0-2) Urine WBC Occ /HPF (0-4) Urine Bacteria 0 /HPF (0-FEW) Urine Mucus Mod /LPF Urine Opiates Screen Neg (NEG) Urine Methadone Screen Neg (NEG) Urine Barbiturates Neg (NEG) Urine Phencyclidine Screen Neg (NEG) Urine Amphetamine/Methamphetamine Neg (NEG) Urine Benzodiazepines Screen Neg (NEG) Urine Cocaine Screen Neg (NEG) Urine Cannabinoids Screen Neg (NEG) Urine Ethyl Alcohol Neg (NEG) Test 08/18/18 11:47 08/18/18 13:00 08/18/18 13:30 08/18/18 15:30 Bedside Hemoglobin 13.6 g/dL (14-18) Bedside Hematocrit 40 % (37-52) Bedside Sodium 140 mmol/L (135-145) Bedside Potassium 4.1 mmol/L (3.5-5.0) Bedside Chloride 103 mmol/L (98-110) Bedside Total CO2 25 mmol/L (23-32) Anion Gap 16 mmol/L (6-14) Bedside Blood Urea Nitrogen 15 mg/dL (8-26) Bedside Creatinine 0.7 mg/dL (0.5-1.4) Glucose Level 340 mg/dL (70-99) Bedside Ionized Calcium (Caterina) 1.19 mmol/L (1.13-1.32) Prothrombin Time 13.2 SEC (11.7-14.0) Prothromb Time International Ratio 1.1 (0.8-1.1) Activated Partial Thromboplast Time 24 SEC (24-38) O2 Saturation 95 % (92-99) Arterial Blood pH 7.30 (7.35-7.45) Arterial Blood pCO2 at Patient Temp 48 mmHg (35-46) Arterial Blood pO2 at Patient Temp 87 mmHg (75-108) Arterial Blood HCO3 23 mmol/L (21-28) Arterial Blood Base Excess -3 mmol/L (-3-3) FiO2 40 CSF Color Colorless CSF Clarity Clear CSF WBC 2 CSF RBC 0 CSF Glucose 163 mg/dL (37-70) CSF Total Protein 39.6 mg/dL (15.0-45.0) Test 08/18/18 18:41 08/19/18 07:30 08/19/18 08:23 Glucose (Fingerstick) 253 mg/dL (70-99) 196 mg/dL (70-99) O2 Saturation 96 % (92-99) Arterial Blood pH 7.40 (7.35-7.45) Arterial Blood pCO2 at Patient Temp 42 mmHg (35-46) Arterial Blood pO2 at Patient Temp 87 mmHg (75-108) Arterial Blood HCO3 25 mmol/L (21-28) Arterial Blood Base Excess 1 mmol/L (-3-3) FiO2 40 Impression . IMPRESSION: 1. Acute respiratory failure. This patient intubated for airway protection in the Emergency Room. 2. Syncopal episode at home, etiology unclear, NO PE ON CT CHEST NO AORTIC DISSECTION 3. Type 2 diabetes. 4. Elevated blood sugar. 5. Mild respiratory acidosis. 6. Suspect obstructive sleep apnea. IMPRESSION: 1. No aortic dissection or aneurysm. 2. Respiratory motion artifact limits sensitivity for small peripheral pulmonary emboli. None are seen. 3. No significant arterial stenosis. Minimal atherosclerotic changes. 4. Borderline cardiomegaly. Correlate with echocardiography. 5. Moderate bilateral dependent atelectasis. Plan . DID WELL ON TRIAL FOLLOWING COMMANDS WILL EXTUBATE D/W FAMILY NO PULMONARY ORIGIN FOR SYNCOPE WILL AWAIT FINAL NEURO INPUT CCT 30 MIN UTE GANDHI MD Aug 19, 2018 10:30
[2018-08-19 12:26] LABS: BASE EXCESS ABG 0 mmol/L (-3-3); HCO3 ABG 25 mmol/L (21-28); PCO2 ABG 43 mmHg (35-46); PO2 ABG 108 mmHg (75-108); SAT O2 ABG 97 % (92-99)
[2018-08-19 13:35] LABS: FIO2 ABG 40
--- NOTE | 2018-08-19 13:35 | EEG ---
DATE OF SERVICE: 08/19/2018 ATTENDING PHYSICIAN: Dr. Wellington. EEG NUMBER: [id number] OBJECTIVE: The patient is a 42-year-old male with altered level of consciousness. DESCRIPTION: This is a digital study. Electrodes are placed according to the international 10-20 system. Bipolar and referential montages are available. Activation procedures typically include hyperventilation and intermittent photic stimulation. INTERPRETATION: The waking background consists of 8 Hz, 20-50 microvolt activity, symmetrically distributed over parietooccipital regions and reactive to eye opening. Hyperventilation is not performed as the patient is on a ventilator. Intermittent photic stimulation is noncontributory. Stage 1 is sleep is achieved with normal electroencephalogram patterns. IMPRESSION: This electroencephalogram with the patient in an obtunded state as well as sleeping is within normal limits. There is no focal, paroxysmal, or epileptiform activity. Thank you for letting us help with the patient's care. CAMMY DOUGLAS MD DR: LI/olivia JOB#: [id number] / [id number] RITA Yang MD
[2018-08-19] MEDS: INSULIN LISPRO 300 UNITS/3 ML INSULN.PEN. SQ SCH ×2 (13:38→17:00)
--- NOTE | 2018-08-19 15:13 | PDOC ---
PROGRESS NOTES Assessment Problems Medical Problems: (1) Altered mental status Status: Acute (2) Respiratory failure Status: Acute Obtundation, no evidence of brainstem stroke which was our first concern. No obvious metabolic derangement, pulmonary embolus ruled out, no seizure activity on the EEG, no stroke on MRI. He may have passed out from exhaustion, he works every 2 hours a week, but there is no intoxication. There may been a concussion. Lumbar puncture was negative for any infection. Plan No additional neurological studies possible or needed. Hold off on starting empiric anticonvulsants. I counseled the patient to keep a better eye on his sugars and to work no more than 40 hours a week Aim for discharge tomorrow. Subjective No complaints, denies any intoxicants Objective Vital Signs Date Time Temp Pulse Resp B/P (MAP) Pulse Ox O2 Delivery O2 Flow Rate FiO2 08/19/18 14:00 101 20 132/81 (98) 96 Nasal Cannula 3.0 08/19/18 12:00 98.2 98.2 Intake and Output 08/19/18 07:00 Intake Total 3557 ml Output Total 2485 ml Balance 1072 ml Intake Oral 0 ml IV Total 3557 ml Output Urine Total 2485 ml PHYSICAL EXAM Sleepy, arouses easily, knows date and location PERRL. EOMI. CN: no focal findings. Muscle tone: normal. Muscle strength: 4/5 DTR: + Plantar reflex: flexor Gait: not examined in bed. Sensory exam: Stocking loss. No cerebellar signs elicited. Review of Relevant I have reviewed the following items brandan (where applicable) has been applied. Labs Laboratory Tests Test 08/18/18 11:37 08/18/18 11:38 08/18/18 11:40 08/18/18 11:42 O2 Saturation 98 % (92-99) Arterial Blood pH 7.28 (7.35-7.45) Arterial Blood pCO2 at Patient Temp 55 mmHg (35-46) Arterial Blood pO2 at Patient Temp 180 mmHg (75-108) Arterial Blood HCO3 26 mmol/L (21-28) Arterial Blood Base Excess -2 mmol/L (-3-3) FiO2 80 Glucose (Fingerstick) 343 mg/dL (70-99) White Blood Count 9.5 x10^3/uL (4.0-11.0) Red Blood Count 4.55 x10^6/uL (4.30-5.70) Hemoglobin 14.4 g/dL (13.0-17.5) Hematocrit 41.9 % (39.0-53.0) Mean Corpuscular Volume 92 fL (79-100) Mean Corpuscular Hemoglobin 32 pg (25-35) Mean Corpuscular Hemoglobin Concent 34 g/dL (31-37) Red Cell Distribution Width 13.3 % (11.5-14.5) Platelet Count 189 x10^3/uL (140-400) Neutrophils (%) (Auto) 74 % (31-73) Lymphocytes (%) (Auto) 20 % (24-48) Monocytes (%) (Auto) 5 % (0-9) Eosinophils (%) (Auto) 0 % (0-3) Basophils (%) (Auto) 1 % (0-3) Neutrophils # (Auto) 7.0 x10^3uL (1.8-7.7) Lymphocytes # (Auto) 1.9 x10^3/uL (1.0-4.8) Monocytes # (Auto) 0.5 x10^3/uL (0.0-1.1) Eosinophils # (Auto) 0.0 x10^3/uL (0.0-0.7) Basophils # (Auto) 0.0 x10^3/uL (0.0-0.2) Platelet Estimate Adequate (ADEQUATE) Sodium Level 139 mmol/L (136-145) Potassium Level 3.9 mmol/L (3.5-5.1) Chloride Level 103 mmol/L (98-107) Carbon Dioxide Level 24 mmol/L (21-32) Anion Gap 12 (6-14) Blood Urea Nitrogen 14 mg/dL (8-26) Creatinine 1.0 mg/dL (0.7-1.3) Estimated GFR (Cockcroft-Gault) 81.9 BUN/Creatinine Ratio 14 (6-20) Glucose Level 343 mg/dL (70-99) Lactic Acid Level 1.2 mmol/L (0.4-2.0) Calcium Level 9.5 mg/dL (8.5-10.1) Magnesium Level 1.8 mg/dL (1.8-2.4) Total Bilirubin 0.2 mg/dL (0.2-1.0) Aspartate Amino Transf (AST/SGOT) 19 U/L (15-37) Alanine Aminotransferase (ALT/SGPT) 49 U/L (16-63) Alkaline Phosphatase 88 U/L (46-116) Creatine Kinase 67 U/L (39-308) Creatine Kinase MB (Mass) 0.5 ng/mL (0.0-3.6) Creatine Kinase MB Relative Index % (0-4) Troponin I Quantitative < 0.017 ng/mL (0.000-0.055) YX-Dig-Z-Type Natriuretic Peptide 7 pg/mL (0-124) Total Protein 7.5 g/dL (6.4-8.2) Albumin 3.8 g/dL (3.4-5.0) Albumin/Globulin Ratio 1.0 (1.0-1.7) Lipase 88 U/L (73-393) Thyroid Stimulating Hormone (TSH) 8.020 uIU/mL (0.358-3.74) Free Thyroxine 0.90 ng/dL (0.76-1.46) Acetone Level Neg (NEG) Urine Collection Type Unknown Urine Color Yellow Urine Clarity Clear Urine pH 5.5 Urine Specific [place] 1.020 Urine Protein Negative mg/dL (NEG-TRACE) Urine Glucose (UA) >=1000 mg/dL (NEG) Urine Ketones (Stick) Negative mg/dL (NEG) Urine Blood Negative (NEG) Urine Nitrite Negative (NEG) Urine Bilirubin Negative (NEG) Urine Urobilinogen Dipstick 0.2 mg/dL (0.2 mg/dL) Urine Leukocyte Esterase Negative (NEG) Urine RBC 0 /HPF (0-2) Urine WBC Occ /HPF (0-4) Urine Bacteria 0 /HPF (0-FEW) Urine Mucus Mod /LPF Urine Opiates Screen Neg (NEG) Urine Methadone Screen Neg (NEG) Urine Barbiturates Neg (NEG) Urine Phencyclidine Screen Neg (NEG) Urine Amphetamine/Methamphetamine Neg (NEG) Urine Benzodiazepines Screen Neg (NEG) Urine Cocaine Screen Neg (NEG) Urine Cannabinoids Screen Neg (NEG) Urine Ethyl Alcohol Neg (NEG) Test 08/18/18 11:47 08/18/18 13:00 08/18/18 13:30 08/18/18 15:30 Bedside Hemoglobin 13.6 g/dL (14-18) Bedside Hematocrit 40 % (37-52) Bedside Sodium 140 mmol/L (135-145) Bedside Potassium 4.1 mmol/L (3.5-5.0) Bedside Chloride 103 mmol/L (98-110) Bedside Total CO2 25 mmol/L (23-32) Anion Gap 16 mmol/L (6-14) Bedside Blood Urea Nitrogen 15 mg/dL (8-26) Bedside Creatinine 0.7 mg/dL (0.5-1.4) Glucose Level 340 mg/dL (70-99) Bedside Ionized Calcium (Caterina) 1.19 mmol/L (1.13-1.32) Prothrombin Time 13.2 SEC (11.7-14.0) Prothromb Time International Ratio 1.1 (0.8-1.1) Activated Partial Thromboplast Time 24 SEC (24-38) O2 Saturation 95 % (92-99) Arterial Blood pH 7.30 (7.35-7.45) Arterial Blood pCO2 at Patient Temp 48 mmHg (35-46) Arterial Blood pO2 at Patient Temp 87 mmHg (75-108) Arterial Blood HCO3 23 mmol/L (21-28) Arterial Blood Base Excess -3 mmol/L (-3-3) FiO2 40 CSF Color Colorless CSF Clarity Clear CSF WBC 2 CSF RBC 0 CSF Glucose 163 mg/dL (37-70) CSF Total Protein 39.6 mg/dL (15.0-45.0) Test 08/18/18 18:41 08/19/18 07:30 08/19/18 08:23 08/19/18 11:55 Glucose (Fingerstick) 253 mg/dL (70-99) 196 mg/dL (70-99) O2 Saturation 96 % (92-99) 97 % (92-99) Arterial Blood pH 7.40 (7.35-7.45) 7.39 (7.35-7.45) Arterial Blood pCO2 at Patient Temp 42 mmHg (35-46) 43 mmHg (35-46) Arterial Blood pO2 at Patient Temp 87 mmHg (75-108) 108 mmHg (75-108) Arterial Blood HCO3 25 mmol/L (21-28) 25 mmol/L (21-28) Arterial Blood Base Excess 1 mmol/L (-3-3) 0 mmol/L (-3-3) FiO2 40 40 Test 08/19/18 12:07 Glucose (Fingerstick) 224 mg/dL (70-99) Laboratory Tests Test 08/18/18 15:30 08/18/18 18:41 08/19/18 07:30 08/19/18 08:23 CSF Color Colorless CSF Clarity Clear CSF WBC 2 CSF RBC 0 CSF Glucose 163 mg/dL (37-70) CSF Total Protein 39.6 mg/dL (15.0-45.0) Glucose (Fingerstick) 253 mg/dL (70-99) 196 mg/dL (70-99) O2 Saturation 96 % (92-99) Arterial Blood pH 7.40 (7.35-7.45) Arterial Blood pCO2 at Patient Temp 42 mmHg (35-46) Arterial Blood pO2 at Patient Temp 87 mmHg (75-108) Arterial Blood HCO3 25 mmol/L (21-28) Arterial Blood Base Excess 1 mmol/L (-3-3) FiO2 40 Test 08/19/18 11:55 08/19/18 12:07 O2 Saturation 97 % (92-99) Arterial Blood pH 7.39 (7.35-7.45) Arterial Blood pCO2 at Patient Temp 43 mmHg (35-46) Arterial Blood pO2 at Patient Temp 108 mmHg (75-108) Arterial Blood HCO3 25 mmol/L (21-28) Arterial Blood Base Excess 0 mmol/L (-3-3) FiO2 40 Glucose (Fingerstick) 224 mg/dL (70-99) Microbiology 08/18/18 CSF Gram Stain - Final, Complete Medications Current Medications Propofol 50 ml @ As Directed STK-MED ONCE IV ; Start 08/18/18 at 11:38; Stop 08/18/18 at 17:42; Status DC Sodium Chloride 1,000 ml @ 1,000 mls/hr 1X ONCE IV Last administered on 08/18at 12:04; Start 08/18/18 at 11:45; Stop 08/18/18 at 12:44; Status DC Sodium Chloride 1,000 ml @ 1,000 mls/hr 1X ONCE IV Last administered on 08/18at 12:40; Start 08/18/18 at 11:45; Stop 08/18/18 at 12:44; Status DC Rocuronium Aylett (Zemuron) 100 mg 1X ONCE IV Last administered on at 11:33; Start 08/18/18 at 11:45; Stop 08/18/18 at 12:13; Status DC Etomidate (Amidate) 20 mg 1X ONCE IV Last administered on 08/18/18at 12:02; Start 08/18/18 at 11:45; Stop 08/18/18 at 12:13; Status DC Iohexol (Omnipaque 300 Mg/ml) 75 ml 1X ONCE IV ; Start 08/18/18 at 12:15; Stop 08/18/18 at 12:16; Status DC Propofol 50 ml @ 0 mls/hr 1X ONCE IV Last administered on 08/18/18at 11:49; Start 08/18/18 at 12:30; Stop 08/18/18 at 17:42; Status DC Naloxone HCl (Narcan) 0.4 mg STK-MED ONCE .ROUTE ; Start 08/18/18 at 13:20; Stop 08/18/18 at 13:21; Status DC Naloxone HCl (Narcan) 0.4 mg 1X ONCE IV Last administered on 08/18/18at 13:22 ; Start 08/18/18 at 13:45; Stop 08/18/18 at 13:46; Status DC Lidocaine/Sodium Bicarbonate (Buffered Lidocaine 1%) 6 ml 1X ONCE INJ Last administered on 08/18/18at 14:45; Start 08/18/18 at 14:45; Stop 08/18/18 at 14 :46; Status DC Propofol 100 ml @ As Directed STK-MED ONCE IV ; Start 08/18/18 at 14:37; Stop 08/18/18 at 17:42; Status DC Iohexol (Omnipaque 300 Mg/ml) 90 ml 1X ONCE IV Last administered on at 17:20; Start 08/18/18 at 17:15; Stop 08/18/18 at 17:20; Status DC Info (CONTRAST GIVEN -- Rx MONITORING) 1 each PRN DAILY PRN MC SEE COMMENTS; Start 08/18/18 at 17:15; Stop 08/20/18 at 17:14 Sodium Chloride 1,000 ml @ 100 mls/hr Q10H IV Last administered on 08/19/18at 10:20; Start 08/18/18 at 18:00 Propofol 100 ml @ 0 mls/hr CONT PRN IV PER PROTOCOL Last administered on at 06:12; Start 08/18/18 at 18:00 Chlorhexidine Gluconate (Peridex) 15 ml BID MM ; Start 08/18/18 at 21:00; Stop 08/18/18 at 21:00; Status DC Insulin Human Lispro (HumaLOG) 0-7 UNITS TIDWMEALS SQ ; Start 08/19/18 at 08:00 ; Stop 08/19/18 at 09:14; Status DC Dextrose (Dextrose 50%-Water Syringe) 12.5 gm PRN Q15MIN PRN IV SEE COMMENTS; Start 08/18/18 at 18:45; Stop 08/19/18 at 12:31; Status DC Fentanyl Citrate (Fentanyl 2ml Vial) 50 mcg PRN Q2HR PRN IV SEVERE PAIN Last administered on 08/19/18at 03:00; Start 08/19/18 at 02:45 Fentanyl Citrate (Fentanyl 2ml Vial) 25 mcg PRN Q2HR PRN IV MODERATE PAIN; Start 08/19/18 at 02:45 Ondansetron HCl (Zofran) 4 mg PRN Q6HRS PRN IV NAUSEA/VOMITING 1ST CHOICE Last administered on 08/19/18at 13:54; Start 08/19/18 at 08:00 Ondansetron HCl (Zofran Odt) 4 mg PRN Q6HRS PRN PO NAUSEA/VOMITING 1ST CHOICE; Start 08/19/18 at 08:00 Acetaminophen (Tylenol) 500 mg PRN Q6HRS PRN PO MILD PAIN / TEMP; Start at 08:00 Enoxaparin Sodium (Lovenox 40mg Syringe) 40 mg Q24H SQ Last administered on 09/26at 10:20; Start 08/19/18 at 09:00 Pantoprazole Sodium (PROTONIX VIAL for IV PUSH) 40 mg DAILYAC IVP ; Start 08/20 at 07:30 Pantoprazole Sodium (PROTONIX VIAL for IV PUSH) 40 mg 1X ONCE IVP Last administered on 08/19/18at 10:23; Start 08/19/18 at 08:00; Stop 08/19/18 at 08 :01; Status DC Propofol (Diprivan) 1,000 mg STK-MED ONCE IV ; Start 08/18/18 at 15:00; Stop 08/19/18 at 08:29; Status DC Insulin Human Lispro (HumaLOG) 0-9 UNITS TIDWMEALS SQ Last administered on 09/26at 13:38; Start 08/19/18 at 12:00 Dextrose (Dextrose 50%-Water Syringe) 12.5 gm PRN Q15MIN PRN IV SEE COMMENTS; Start 08/19/18 at 09:15 Vitals/I & O Vital Sign - Last 24 Hours 08/18/18 08/18/18 08/18/18 08/18/18 16:00 16:00 17:33 18:00 Temp 97.3 97.3 Pulse 98 84 Resp 18 18 B/P (MAP) 123/81 (95) 96/63 (74) Pulse Ox 100 99 100 O2 Delivery Ventilator Mechanical Ventilator Ventilator Ventilator 08/18/18 08/18/18 08/18/18 08/18/18 19:00 19:59 20:00 20:00 Temp 97.4 97.4 Pulse 80 78 Resp 18 18 B/P (MAP) 99/54 (69) 106/62 (77) Pulse Ox 99 99 99 O2 Delivery Ventilator Ventilator Mechanical Ventilator Ventilator 08/18/18 08/18/18 08/18/18 08/18/18 21:00 22:00 23:00 23:24 Pulse 73 77 76 Resp 18 18 18 B/P (MAP) 100/63 (75) 97/61 (73) 106/66 (79) Pulse Ox 99 99 100 99 O2 Delivery Ventilator Ventilator Ventilator Ventilator 08/18/18 08/19/18 08/19/18 08/19/18 23:59 00:00 01:00 01:12 Temp 97.2 97.2 Pulse 76 77 Resp 18 18 B/P (MAP) 97/63 (74) 106/77 (87) Pulse Ox 100 100 99 O2 Delivery Mechanical Ventilator Ventilator Ventilator Ventilator 08/19/18 08/19/18 08/19/18 08/19/18 02:00 02:41 03:00 03:00 Pulse 74 71 Resp 18 18 18 B/P (MAP) 107/68 (81) 98/65 (76) Pulse Ox 100 99 100 100 O2 Delivery Ventilator Ventilator Ventilator Ventilator 08/19/18 08/19/18 08/19/18 08/19/18 03:30 03:56 04:00 05:00 Temp 97.8 97.8 Pulse 69 69 Resp 18 18 18 B/P (MAP) 106/64 (78) 104/69 (81) Pulse Ox 100 100 100 O2 Delivery Ventilator Mechanical Ventilator Ventilator Ventilator 08/19/18 08/19/18 08/19/18 08/19/18 05:19 06:00 07:00 07:22 Pulse 71 96 Resp 18 18 B/P (MAP) 100/61 (74) 106/63 (77) Pulse Ox 99 100 100 100 O2 Delivery Ventilator Ventilator Ventilator Ventilator 08/19/18 08/19/18 08/19/18 08/19/18 08:00 08:00 09:00 09:07 Temp 97.6 97.6 Pulse 100 75 Resp 18 18 B/P (MAP) 112/67 (82) 102/67 (79) Pulse Ox 100 97 100 O2 Delivery Mechanical Ventilator Ventilator Ventilator Ventilator 08/19/18 08/19/18 08/19/18 08/19/18 10:00 11:00 11:33 12:00 Pulse 81 122 Resp 18 18 B/P (MAP) 103/76 (85) 119/68 (85) Pulse Ox 100 100 100 O2 Delivery Ventilator Ventilator Ventilator Mechanical Ventilator 08/19/18 08/19/18 08/19/18 12:00 13:00 14:00 Temp 98.2 98.2 Pulse 103 114 101 Resp 18 22 20 B/P (MAP) 123/65 (84) 131/70 (90) 132/81 (98) Pulse Ox 98 97 96 O2 Delivery Ventilator Nasal Cannula Nasal Cannula O2 Flow Rate 4.0 3.0 Intake and Output 08/18/18 08/18/18 08/19/18 15:00 23:00 07:00 Intake Total 2000 ml 0 ml 1557 ml Output Total 700 ml 725 ml 1060 ml Balance 1300 ml -725 ml 497 ml Images MRI brain: Images from the study are degraded by patient motion. The ventricles and sulci are within normal limits in size and configuration. No area of significant abnormal signal intensity is seen involving the brain parenchyma. No extra-axial fluid collection is seen. There is no MRI evidence of acute ischemia/infarction. Mild to moderate mucosal thickening is seen scattered throughout the paranasal sinuses. There are minimal bilateral mastoid effusions. Normal flow voids are seen within the major vascular structures surrounding the brain parenchyma. IMPRESSION: No acute parenchymal abnormality is seen. EEG: normal CAMMY DOUGLAS MD Aug 19, 2018 15:13
[2018-08-20] VITALS (12 sets, daily range): BP systolic 115–146; BP diastolic 71–84
[2018-08-20 02:14] LABS: HEMOGLOBIN A1C 8.9 % (4.8-5.6)
[2018-08-20 05:31] LABS: BASO % 0 % (0-3); EOS % 0 % (0-3); HEMATOCRIT 38.9 % (39.0-53.0); HEMOGLOBIN 13.4 g/dL (13.0-17.5); LYMPH # 1.3 x10^3/uL (1.0-4.8); LYMPH % 15 % (24-48); MEAN CORPUSCULAR HEMOGLOBIN 31 pg (25-35); MEAN CORPUSCULAR HGB CONC 34 g/dL (31-37); MEAN CORPUSCULAR VOLUME 91 fL (79-100); MONO # 0.6 x10^3/uL (0.0-1.1); MONO % 7 % (0-9); NEUT # 6.9 x10^3uL (1.8-7.7); NEUT % 78 % (31-73); PLATELET COUNT 200 x10^3/uL (140-400); RED BLOOD COUNT 4.27 x10^6/uL (4.30-5.70); RED CELL DISTRIBUTION WIDTH 13.2 % (11.5-14.5); WHITE BLOOD COUNT 8.9 x10^3/uL (4.0-11.0)
[2018-08-20 05:46] LABS: CALCIUM 8.9 mg/dL (8.5-10.1); CREATININE 0.7 mg/dL (0.7-1.3); GFR 123.7; POTASSIUM 3.5 mmol/L (3.5-5.1)
[2018-08-20] MEDS: IV NORMAL SALINE 1000ML BAG 1,000 ML IV SCH (05:52)
[2018-08-20] MEDS ORDERED: PANTOPRAZOLE IV PUSH 40 MG VIAL. IVP SCH (07:30)
[2018-08-20] MEDS: INSULIN LISPRO 300 UNITS/3 ML INSULN.PEN. SQ SCH ×2 (08:37→12:19)
[2018-08-20] MEDS: ENOXAPARIN 40 MG/0.4 ML SYRINGE. SQ SCH (09:13)
--- NOTE | 2018-08-20 10:14 | PDOC ---
PROGRESS NOTES Assessment Problems Medical Problems: (1) Altered mental status Status: Acute (2) Respiratory failure Status: Acute Obtundation, Negative workup, may have had a seizure, may have collapsed from exhaustion and high blood sugar Plan No additional neurological studies possible or needed. Hold off on starting empiric anticonvulsants. I counseled the patient to keep a better eye on his sugars and to work no more than 40 hours a week Okay for discharge Follow-up with neurology as needed. Also discussed with patient's Subjective No complaints, wants to go home Objective Vital Signs Date Time Temp Pulse Resp B/P (MAP) Pulse Ox O2 Delivery O2 Flow Rate FiO2 08/20/18 09:00 96 15 145/82 (103) 98 Nasal Cannula 1.0 08/20/18 08:00 97.6 97.6 Intake and Output 08/20/18 07:00 Intake Total 2761 ml Output Total 1605 ml Balance 1156 ml Intake Oral 240 ml IV Total 2521 ml Output Urine Total 1605 ml PHYSICAL EXAM Alert, oriented to person, place, time PERRL. EOMI. CN: no focal findings. Muscle tone: normal. Muscle strength: 5/5 DTR: 1+ Plantar reflex: flexor Gait: normal. Sensory exam: Stocking loss. No cerebellar signs elicited. Review of Relevant I have reviewed the following items brandan (where applicable) has been applied. Labs Laboratory Tests Test 08/18/18 11:37 08/18/18 11:38 08/18/18 11:40 08/18/18 11:42 O2 Saturation 98 % (92-99) Arterial Blood pH 7.28 (7.35-7.45) Arterial Blood pCO2 at Patient Temp 55 mmHg (35-46) Arterial Blood pO2 at Patient Temp 180 mmHg (75-108) Arterial Blood HCO3 26 mmol/L (21-28) Arterial Blood Base Excess -2 mmol/L (-3-3) FiO2 80 Glucose (Fingerstick) 343 mg/dL (70-99) White Blood Count 9.5 x10^3/uL (4.0-11.0) Red Blood Count 4.55 x10^6/uL (4.30-5.70) Hemoglobin 14.4 g/dL (13.0-17.5) Hematocrit 41.9 % (39.0-53.0) Mean Corpuscular Volume 92 fL (79-100) Mean Corpuscular Hemoglobin 32 pg (25-35) Mean Corpuscular Hemoglobin Concent 34 g/dL (31-37) Red Cell Distribution Width 13.3 % (11.5-14.5) Platelet Count 189 x10^3/uL (140-400) Neutrophils (%) (Auto) 74 % (31-73) Lymphocytes (%) (Auto) 20 % (24-48) Monocytes (%) (Auto) 5 % (0-9) Eosinophils (%) (Auto) 0 % (0-3) Basophils (%) (Auto) 1 % (0-3) Neutrophils # (Auto) 7.0 x10^3uL (1.8-7.7) Lymphocytes # (Auto) 1.9 x10^3/uL (1.0-4.8) Monocytes # (Auto) 0.5 x10^3/uL (0.0-1.1) Eosinophils # (Auto) 0.0 x10^3/uL (0.0-0.7) Basophils # (Auto) 0.0 x10^3/uL (0.0-0.2) Platelet Estimate Adequate (ADEQUATE) Sodium Level 139 mmol/L (136-145) Potassium Level 3.9 mmol/L (3.5-5.1) Chloride Level 103 mmol/L (98-107) Carbon Dioxide Level 24 mmol/L (21-32) Anion Gap 12 (6-14) Blood Urea Nitrogen 14 mg/dL (8-26) Creatinine 1.0 mg/dL (0.7-1.3) Estimated GFR (Cockcroft-Gault) 81.9 BUN/Creatinine Ratio 14 (6-20) Glucose Level 343 mg/dL (70-99) Hemoglobin A1c 8.9 % (4.8-5.6) Lactic Acid Level 1.2 mmol/L (0.4-2.0) Calcium Level 9.5 mg/dL (8.5-10.1) Magnesium Level 1.8 mg/dL (1.8-2.4) Total Bilirubin 0.2 mg/dL (0.2-1.0) Aspartate Amino Transf (AST/SGOT) 19 U/L (15-37) Alanine Aminotransferase (ALT/SGPT) 49 U/L (16-63) Alkaline Phosphatase 88 U/L (46-116) Creatine Kinase 67 U/L (39-308) Creatine Kinase MB (Mass) 0.5 ng/mL (0.0-3.6) Creatine Kinase MB Relative Index % (0-4) Troponin I Quantitative < 0.017 ng/mL (0.000-0.055) QV-Qeg-L-Type Natriuretic Peptide 7 pg/mL (0-124) Total Protein 7.5 g/dL (6.4-8.2) Albumin 3.8 g/dL (3.4-5.0) Albumin/Globulin Ratio 1.0 (1.0-1.7) Lipase 88 U/L (73-393) Thyroid Stimulating Hormone (TSH) 8.020 uIU/mL (0.358-3.74) Free Thyroxine 0.90 ng/dL (0.76-1.46) Acetone Level Neg (NEG) Urine Collection Type Unknown Urine Color Yellow Urine Clarity Clear Urine pH 5.5 Urine Specific [place] 1.020 Urine Protein Negative mg/dL (NEG-TRACE) Urine Glucose (UA) >=1000 mg/dL (NEG) Urine Ketones (Stick) Negative mg/dL (NEG) Urine Blood Negative (NEG) Urine Nitrite Negative (NEG) Urine Bilirubin Negative (NEG) Urine Urobilinogen Dipstick 0.2 mg/dL (0.2 mg/dL) Urine Leukocyte Esterase Negative (NEG) Urine RBC 0 /HPF (0-2) Urine WBC Occ /HPF (0-4) Urine Bacteria 0 /HPF (0-FEW) Urine Mucus Mod /LPF Urine Opiates Screen Neg (NEG) Urine Methadone Screen Neg (NEG) Urine Barbiturates Neg (NEG) Urine Phencyclidine Screen Neg (NEG) Urine Amphetamine/Methamphetamine Neg (NEG) Urine Benzodiazepines Screen Neg (NEG) Urine Cocaine Screen Neg (NEG) Urine Cannabinoids Screen Neg (NEG) Urine Ethyl Alcohol Neg (NEG) Test 08/18/18 11:47 08/18/18 13:00 08/18/18 13:30 08/18/18 15:30 Bedside Hemoglobin 13.6 g/dL (14-18) Bedside Hematocrit 40 % (37-52) Bedside Sodium 140 mmol/L (135-145) Bedside Potassium 4.1 mmol/L (3.5-5.0) Bedside Chloride 103 mmol/L (98-110) Bedside Total CO2 25 mmol/L (23-32) Anion Gap 16 mmol/L (6-14) Bedside Blood Urea Nitrogen 15 mg/dL (8-26) Bedside Creatinine 0.7 mg/dL (0.5-1.4) Glucose Level 340 mg/dL (70-99) Bedside Ionized Calcium (Caterina) 1.19 mmol/L (1.13-1.32) Prothrombin Time 13.2 SEC (11.7-14.0) Prothromb Time International Ratio 1.1 (0.8-1.1) Activated Partial Thromboplast Time 24 SEC (24-38) O2 Saturation 95 % (92-99) Arterial Blood pH 7.30 (7.35-7.45) Arterial Blood pCO2 at Patient Temp 48 mmHg (35-46) Arterial Blood pO2 at Patient Temp 87 mmHg (75-108) Arterial Blood HCO3 23 mmol/L (21-28) Arterial Blood Base Excess -3 mmol/L (-3-3) FiO2 40 CSF Color Colorless CSF Clarity Clear CSF WBC 2 CSF RBC 0 CSF Glucose 163 mg/dL (37-70) CSF Total Protein 39.6 mg/dL (15.0-45.0) Test 08/18/18 17:50 08/18/18 18:41 08/19/18 07:30 08/19/18 08:23 Nasal Screen MRSA (PCR) Negative (Negative) Glucose (Fingerstick) 253 mg/dL (70-99) 196 mg/dL (70-99) O2 Saturation 96 % (92-99) Arterial Blood pH 7.40 (7.35-7.45) Arterial Blood pCO2 at Patient Temp 42 mmHg (35-46) Arterial Blood pO2 at Patient Temp 87 mmHg (75-108) Arterial Blood HCO3 25 mmol/L (21-28) Arterial Blood Base Excess 1 mmol/L (-3-3) FiO2 40 Test 08/19/18 11:55 08/19/18 12:07 08/19/18 17:17 08/19/18 20:19 O2 Saturation 97 % (92-99) Arterial Blood pH 7.39 (7.35-7.45) Arterial Blood pCO2 at Patient Temp 43 mmHg (35-46) Arterial Blood pO2 at Patient Temp 108 mmHg (75-108) Arterial Blood HCO3 25 mmol/L (21-28) Arterial Blood Base Excess 0 mmol/L (-3-3) FiO2 40 Glucose (Fingerstick) 224 mg/dL (70-99) 190 mg/dL (70-99) 195 mg/dL (70-99) Test 08/20/18 03:15 08/20/18 03:45 08/20/18 08:15 White Blood Count 8.9 x10^3/uL (4.0-11.0) Red Blood Count 4.27 x10^6/uL (4.30-5.70) Hemoglobin 13.4 g/dL (13.0-17.5) Hematocrit 38.9 % (39.0-53.0) Mean Corpuscular Volume 91 fL (79-100) Mean Corpuscular Hemoglobin 31 pg (25-35) Mean Corpuscular Hemoglobin Concent 34 g/dL (31-37) Red Cell Distribution Width 13.2 % (11.5-14.5) Platelet Count 200 x10^3/uL (140-400) Neutrophils (%) (Auto) 78 % (31-73) Lymphocytes (%) (Auto) 15 % (24-48) Monocytes (%) (Auto) 7 % (0-9) Eosinophils (%) (Auto) 0 % (0-3) Basophils (%) (Auto) 0 % (0-3) Neutrophils # (Auto) 6.9 x10^3uL (1.8-7.7) Lymphocytes # (Auto) 1.3 x10^3/uL (1.0-4.8) Monocytes # (Auto) 0.6 x10^3/uL (0.0-1.1) Eosinophils # (Auto) 0.0 x10^3/uL (0.0-0.7) Basophils # (Auto) 0.0 x10^3/uL (0.0-0.2) Sodium Level 144 mmol/L (136-145) Potassium Level 3.5 mmol/L (3.5-5.1) Chloride Level 108 mmol/L (98-107) Carbon Dioxide Level 28 mmol/L (21-32) Anion Gap 8 (6-14) Blood Urea Nitrogen 8 mg/dL (8-26) Creatinine 0.7 mg/dL (0.7-1.3) Estimated GFR (Cockcroft-Gault) 123.7 Glucose Level 210 mg/dL (70-99) Calcium Level 8.9 mg/dL (8.5-10.1) Glucose (Fingerstick) 163 mg/dL (70-99) Laboratory Tests Test 08/19/18 11:55 08/19/18 12:07 08/19/18 17:17 08/19/18 20:19 O2 Saturation 97 % (92-99) Arterial Blood pH 7.39 (7.35-7.45) Arterial Blood pCO2 at Patient Temp 43 mmHg (35-46) Arterial Blood pO2 at Patient Temp 108 mmHg (75-108) Arterial Blood HCO3 25 mmol/L (21-28) Arterial Blood Base Excess 0 mmol/L (-3-3) FiO2 40 Glucose (Fingerstick) 224 mg/dL (70-99) 190 mg/dL (70-99) 195 mg/dL (70-99) Test 08/20/18 03:15 08/20/18 03:45 08/20/18 08:15 White Blood Count 8.9 x10^3/uL (4.0-11.0) Red Blood Count 4.27 x10^6/uL (4.30-5.70) Hemoglobin 13.4 g/dL (13.0-17.5) Hematocrit 38.9 % (39.0-53.0) Mean Corpuscular Volume 91 fL (79-100) Mean Corpuscular Hemoglobin 31 pg (25-35) Mean Corpuscular Hemoglobin Concent 34 g/dL (31-37) Red Cell Distribution Width 13.2 % (11.5-14.5) Platelet Count 200 x10^3/uL (140-400) Neutrophils (%) (Auto) 78 % (31-73) Lymphocytes (%) (Auto) 15 % (24-48) Monocytes (%) (Auto) 7 % (0-9) Eosinophils (%) (Auto) 0 % (0-3) Basophils (%) (Auto) 0 % (0-3) Neutrophils # (Auto) 6.9 x10^3uL (1.8-7.7) Lymphocytes # (Auto) 1.3 x10^3/uL (1.0-4.8) Monocytes # (Auto) 0.6 x10^3/uL (0.0-1.1) Eosinophils # (Auto) 0.0 x10^3/uL (0.0-0.7) Basophils # (Auto) 0.0 x10^3/uL (0.0-0.2) Sodium Level 144 mmol/L (136-145) Potassium Level 3.5 mmol/L (3.5-5.1) Chloride Level 108 mmol/L (98-107) Carbon Dioxide Level 28 mmol/L (21-32) Anion Gap 8 (6-14) Blood Urea Nitrogen 8 mg/dL (8-26) Creatinine 0.7 mg/dL (0.7-1.3) Estimated GFR (Cockcroft-Gault) 123.7 Glucose Level 210 mg/dL (70-99) Calcium Level 8.9 mg/dL (8.5-10.1) Glucose (Fingerstick) 163 mg/dL (70-99) Microbiology 08/18/18 Blood Culture - Preliminary, Resulted NO GROWTH AFTER 1 DAY 08/18/18 CSF Gram Stain - Final, Complete Medications Current Medications Propofol 50 ml @ As Directed STK-MED ONCE IV ; Start 08/18/18 at 11:38; Stop 08/18/18 at 17:42; Status DC Sodium Chloride 1,000 ml @ 1,000 mls/hr 1X ONCE IV Last administered on 08/18at 12:04; Start 08/18/18 at 11:45; Stop 08/18/18 at 12:44; Status DC Sodium Chloride 1,000 ml @ 1,000 mls/hr 1X ONCE IV Last administered on 08/18at 12:40; Start 08/18/18 at 11:45; Stop 08/18/18 at 12:44; Status DC Rocuronium [place] (Zemuron) 100 mg 1X ONCE IV Last administered on at 11:33; Start 08/18/18 at 11:45; Stop 08/18/18 at 12:13; Status DC Etomidate (Amidate) 20 mg 1X ONCE IV Last administered on 08/18/18at 12:02; Start 08/18/18 at 11:45; Stop 08/18/18 at 12:13; Status DC Iohexol (Omnipaque 300 Mg/ml) 75 ml 1X ONCE IV ; Start 08/18/18 at 12:15; Stop 08/18/18 at 12:16; Status DC Propofol 50 ml @ 0 mls/hr 1X ONCE IV Last administered on 08/18/18at 11:49; Start 08/18/18 at 12:30; Stop 08/18/18 at 17:42; Status DC Naloxone HCl (Narcan) 0.4 mg STK-MED ONCE .ROUTE ; Start 08/18/18 at 13:20; Stop 08/18/18 at 13:21; Status DC Naloxone HCl (Narcan) 0.4 mg 1X ONCE IV Last administered on 08/18/18at 13:22 ; Start 08/18/18 at 13:45; Stop 08/18/18 at 13:46; Status DC Lidocaine/Sodium Bicarbonate (Buffered Lidocaine 1%) 6 ml 1X ONCE INJ Last administered on 08/18/18at 14:45; Start 08/18/18 at 14:45; Stop 08/18/18 at 14 :46; Status DC Propofol 100 ml @ As Directed STK-MED ONCE IV ; Start 08/18/18 at 14:37; Stop 08/18/18 at 17:42; Status DC Iohexol (Omnipaque 300 Mg/ml) 90 ml 1X ONCE IV Last administered on at 17:20; Start 08/18/18 at 17:15; Stop 08/18/18 at 17:20; Status DC Info (CONTRAST GIVEN -- Rx MONITORING) 1 each PRN DAILY PRN MC SEE COMMENTS; Start 08/18/18 at 17:15; Stop 08/20/18 at 17:14 Sodium Chloride 1,000 ml @ 100 mls/hr Q10H IV Last administered on 08/20/18at 05:52; Start 08/18/18 at 18:00; Stop 08/20/18 at 09:44; Status DC Propofol 100 ml @ 0 mls/hr CONT PRN IV PER PROTOCOL Last administered on at 06:12; Start 08/18/18 at 18:00; Stop 08/20/18 at 09:44; Status DC Chlorhexidine Gluconate (Peridex) 15 ml BID MM ; Start 08/18/18 at 21:00; Stop 08/18/18 at 21:00; Status DC Insulin Human Lispro (HumaLOG) 0-7 UNITS TIDWMEALS SQ ; Start 08/19/18 at 08:00 ; Stop 08/19/18 at 09:14; Status DC Dextrose (Dextrose 50%-Water Syringe) 12.5 gm PRN Q15MIN PRN IV SEE COMMENTS; Start 08/18/18 at 18:45; Stop 08/19/18 at 12:31; Status DC Fentanyl Citrate (Fentanyl 2ml Vial) 50 mcg PRN Q2HR PRN IV SEVERE PAIN Last administered on 08/19/18at 03:00; Start 08/19/18 at 02:45 Fentanyl Citrate (Fentanyl 2ml Vial) 25 mcg PRN Q2HR PRN IV MODERATE PAIN; Start 08/19/18 at 02:45 Ondansetron HCl (Zofran) 4 mg PRN Q6HRS PRN IV NAUSEA/VOMITING 1ST CHOICE Last administered on 08/19/18at 13:54; Start 08/19/18 at 08:00 Ondansetron HCl (Zofran Odt) 4 mg PRN Q6HRS PRN PO NAUSEA/VOMITING 1ST CHOICE; Start 08/19/18 at 08:00 Acetaminophen (Tylenol) 500 mg PRN Q6HRS PRN PO MILD PAIN / TEMP; Start at 08:00 Enoxaparin Sodium (Lovenox 40mg Syringe) 40 mg Q24H SQ Last administered on 10/26at 09:13; Start 08/19/18 at 09:00 Pantoprazole Sodium (PROTONIX VIAL for IV PUSH) 40 mg DAILYAC IVP Last administered on 08/20/18at 08:13; Start 08/20/18 at 07:30; Stop 08/20/18 at 09 :44; Status DC Pantoprazole Sodium (PROTONIX VIAL for IV PUSH) 40 mg 1X ONCE IVP Last administered on 08/19/18at 10:23; Start 08/19/18 at 08:00; Stop 08/19/18 at 08 :01; Status DC Propofol (Diprivan) 1,000 mg STK-MED ONCE IV ; Start 08/18/18 at 15:00; Stop 08/19/18 at 08:29; Status DC Insulin Human Lispro (HumaLOG) 0-9 UNITS TIDWMEALS SQ Last administered on 10/26at 08:37; Start 08/19/18 at 12:00 Dextrose (Dextrose 50%-Water Syringe) 12.5 gm PRN Q15MIN PRN IV SEE COMMENTS; Start 08/19/18 at 09:15 Vitals/I & O Vital Sign - Last 24 Hours 08/19/18 08/19/18 08/19/18 08/19/18 11:00 11:33 12:00 12:00 Temp 98.2 98.2 Pulse 122 103 Resp 18 18 B/P (MAP) 119/68 (85) 123/65 (84) Pulse Ox 100 100 98 O2 Delivery Ventilator Ventilator Mechanical Ventilator Ventilator 08/19/18 08/19/18 08/19/18 08/19/18 13:00 14:00 15:00 16:00 Pulse 114 101 96 Resp 22 20 15 B/P (MAP) 131/70 (90) 132/81 (98) 119/72 (88) Pulse Ox 97 96 97 O2 Delivery Nasal Cannula Nasal Cannula Nasal Cannula Nasal Cannula O2 Flow Rate 4.0 3.0 3.0 3.0 08/19/18 08/19/18 08/19/18 08/19/18 16:00 17:00 18:00 19:00 Temp 97.2 97.2 Pulse 104 102 103 90 Resp 15 14 17 20 B/P (MAP) 131/68 (89) 120/67 (84) 131/78 (95) 138/91 (107) Pulse Ox 97 99 99 98 O2 Delivery Nasal Cannula Nasal Cannula Nasal Cannula Nasal Cannula O2 Flow Rate 3.0 3.0 3.0 3.0 08/19/18 08/19/18 08/19/18 08/19/18 20:00 20:00 21:00 22:00 Temp 98.0 98.0 Pulse 88 75 91 Resp 16 15 17 B/P (MAP) 130/81 (97) 119/69 (86) 133/82 (99) Pulse Ox 98 98 98 O2 Delivery Nasal Cannula Nasal Cannula Nasal Cannula Nasal Cannula O2 Flow Rate 3.0 3.0 2.0 2.0 08/19/18 08/20/18 08/20/18 08/20/18 23:00 00:00 00:00 01:00 Temp 98.7 98.7 Pulse 73 74 68 Resp 14 13 15 B/P (MAP) 117/74 (88) 123/77 (92) 115/72 (86) Pulse Ox 98 98 97 O2 Delivery Nasal Cannula Room Air Room Air Nasal Cannula O2 Flow Rate 2.0 1.0 08/20/18 08/20/18 08/20/18 08/20/18 02:00 03:00 04:00 04:00 Temp 97.7 97.7 Pulse 105 68 93 Resp 20 15 19 B/P (MAP) 126/73 (90) 129/80 (96) 127/83 (98) Pulse Ox 96 96 98 O2 Delivery Room Air Nasal Cannula Nasal Cannula Nasal Cannula O2 Flow Rate 1.0 1.0 1.0 08/20/18 08/20/18 08/20/18 08/20/18 05:00 06:00 07:00 08:00 Pulse 79 77 68 Resp 19 15 13 B/P (MAP) 131/82 (98) 135/78 (97) 132/74 (93) Pulse Ox 94 100 97 O2 Delivery Nasal Cannula Nasal Cannula Nasal Cannula Nasal Cannula O2 Flow Rate 1.0 1.0 1.0 1.0 08/20/18 08/20/18 08:00 09:00 Temp 97.6 97.6 Pulse 104 96 Resp 20 15 B/P (MAP) 143/84 (103) 145/82 (103) Pulse Ox 96 98 O2 Delivery Nasal Cannula Nasal Cannula O2 Flow Rate 1.0 1.0 Intake and Output 08/19/18 08/19/18 08/20/18 15:00 23:00 07:00 Intake Total 91 ml 1235 ml 1435 ml Output Total 585 ml 665 ml 355 ml Balance -494 ml 570 ml 1080 ml CAMMY DOUGLAS MD Aug 20, 2018 10:14
--- NOTE | 2018-08-20 11:03 | PDOC ---
PULMONARY PROGRESS NOTES Subjective EXTUBATED YESTERDAY NOW IN CHAIR OFF 02 NO COMPLAINTS Vitals Vital Signs Date Time Temp Pulse Resp B/P (MAP) Pulse Ox O2 Delivery O2 Flow Rate FiO2 08/20/18 10:00 110 23 134/71 (92) 98 Nasal Cannula 1.0 08/20/18 08:00 97.6 97.6 General: Alert Lungs: Clear Cardiovascular: S1, S2 Abdomen: Soft, Other (OBESE) Neuro Exam: Alert Extremities: No Edema Skin: Warm Labs Laboratory Tests Test 08/18/18 11:37 08/18/18 11:38 08/18/18 11:40 08/18/18 11:42 O2 Saturation 98 % (92-99) Arterial Blood pH 7.28 (7.35-7.45) Arterial Blood pCO2 at Patient Temp 55 mmHg (35-46) Arterial Blood pO2 at Patient Temp 180 mmHg (75-108) Arterial Blood HCO3 26 mmol/L (21-28) Arterial Blood Base Excess -2 mmol/L (-3-3) FiO2 80 Glucose (Fingerstick) 343 mg/dL (70-99) White Blood Count 9.5 x10^3/uL (4.0-11.0) Red Blood Count 4.55 x10^6/uL (4.30-5.70) Hemoglobin 14.4 g/dL (13.0-17.5) Hematocrit 41.9 % (39.0-53.0) Mean Corpuscular Volume 92 fL (79-100) Mean Corpuscular Hemoglobin 32 pg (25-35) Mean Corpuscular Hemoglobin Concent 34 g/dL (31-37) Red Cell Distribution Width 13.3 % (11.5-14.5) Platelet Count 189 x10^3/uL (140-400) Neutrophils (%) (Auto) 74 % (31-73) Lymphocytes (%) (Auto) 20 % (24-48) Monocytes (%) (Auto) 5 % (0-9) Eosinophils (%) (Auto) 0 % (0-3) Basophils (%) (Auto) 1 % (0-3) Neutrophils # (Auto) 7.0 x10^3uL (1.8-7.7) Lymphocytes # (Auto) 1.9 x10^3/uL (1.0-4.8) Monocytes # (Auto) 0.5 x10^3/uL (0.0-1.1) Eosinophils # (Auto) 0.0 x10^3/uL (0.0-0.7) Basophils # (Auto) 0.0 x10^3/uL (0.0-0.2) Platelet Estimate Adequate (ADEQUATE) Sodium Level 139 mmol/L (136-145) Potassium Level 3.9 mmol/L (3.5-5.1) Chloride Level 103 mmol/L (98-107) Carbon Dioxide Level 24 mmol/L (21-32) Anion Gap 12 (6-14) Blood Urea Nitrogen 14 mg/dL (8-26) Creatinine 1.0 mg/dL (0.7-1.3) Estimated GFR (Cockcroft-Gault) 81.9 BUN/Creatinine Ratio 14 (6-20) Glucose Level 343 mg/dL (70-99) Hemoglobin A1c 8.9 % (4.8-5.6) Lactic Acid Level 1.2 mmol/L (0.4-2.0) Calcium Level 9.5 mg/dL (8.5-10.1) Magnesium Level 1.8 mg/dL (1.8-2.4) Total Bilirubin 0.2 mg/dL (0.2-1.0) Aspartate Amino Transf (AST/SGOT) 19 U/L (15-37) Alanine Aminotransferase (ALT/SGPT) 49 U/L (16-63) Alkaline Phosphatase 88 U/L (46-116) Creatine Kinase 67 U/L (39-308) Creatine Kinase MB (Mass) 0.5 ng/mL (0.0-3.6) Creatine Kinase MB Relative Index % (0-4) Troponin I Quantitative < 0.017 ng/mL (0.000-0.055) [id number] Natriuretic Peptide 7 pg/mL (0-124) Total Protein 7.5 g/dL (6.4-8.2) Albumin 3.8 g/dL (3.4-5.0) Albumin/Globulin Ratio 1.0 (1.0-1.7) Lipase 88 U/L (73-393) Thyroid Stimulating Hormone (TSH) 8.020 uIU/mL (0.358-3.74) Free Thyroxine 0.90 ng/dL (0.76-1.46) Acetone Level Neg (NEG) Urine Collection Type Unknown Urine Color Yellow Urine Clarity Clear Urine pH 5.5 Urine Specific [place] 1.020 Urine Protein Negative mg/dL (NEG-TRACE) Urine Glucose (UA) >=1000 mg/dL (NEG) Urine Ketones (Stick) Negative mg/dL (NEG) Urine Blood Negative (NEG) Urine Nitrite Negative (NEG) Urine Bilirubin Negative (NEG) Urine Urobilinogen Dipstick 0.2 mg/dL (0.2 mg/dL) Urine Leukocyte Esterase Negative (NEG) Urine RBC 0 /HPF (0-2) Urine WBC Occ /HPF (0-4) Urine Bacteria 0 /HPF (0-FEW) Urine Mucus Mod /LPF Urine Opiates Screen Neg (NEG) Urine Methadone Screen Neg (NEG) Urine Barbiturates Neg (NEG) Urine Phencyclidine Screen Neg (NEG) Urine Amphetamine/Methamphetamine Neg (NEG) Urine Benzodiazepines Screen Neg (NEG) Urine Cocaine Screen Neg (NEG) Urine Cannabinoids Screen Neg (NEG) Urine Ethyl Alcohol Neg (NEG) Test 08/18/18 11:47 08/18/18 13:00 08/18/18 13:30 08/18/18 15:30 Bedside Hemoglobin 13.6 g/dL (14-18) Bedside Hematocrit 40 % (37-52) Bedside Sodium 140 mmol/L (135-145) Bedside Potassium 4.1 mmol/L (3.5-5.0) Bedside Chloride 103 mmol/L (98-110) Bedside Total CO2 25 mmol/L (23-32) Anion Gap 16 mmol/L (6-14) Bedside Blood Urea Nitrogen 15 mg/dL (8-26) Bedside Creatinine 0.7 mg/dL (0.5-1.4) Glucose Level 340 mg/dL (70-99) Bedside Ionized Calcium (Caterina) 1.19 mmol/L (1.13-1.32) Prothrombin Time 13.2 SEC (11.7-14.0) Prothromb Time International Ratio 1.1 (0.8-1.1) Activated Partial Thromboplast Time 24 SEC (24-38) O2 Saturation 95 % (92-99) Arterial Blood pH 7.30 (7.35-7.45) Arterial Blood pCO2 at Patient Temp 48 mmHg (35-46) Arterial Blood pO2 at Patient Temp 87 mmHg (75-108) Arterial Blood HCO3 23 mmol/L (21-28) Arterial Blood Base Excess -3 mmol/L (-3-3) FiO2 40 CSF Color Colorless CSF Clarity Clear CSF WBC 2 CSF RBC 0 CSF Glucose 163 mg/dL (37-70) CSF Total Protein 39.6 mg/dL (15.0-45.0) Test 08/18/18 17:50 08/18/18 18:41 08/19/18 07:30 08/19/18 08:23 Nasal Screen MRSA (PCR) Negative (Negative) Glucose (Fingerstick) 253 mg/dL (70-99) 196 mg/dL (70-99) O2 Saturation 96 % (92-99) Arterial Blood pH 7.40 (7.35-7.45) Arterial Blood pCO2 at Patient Temp 42 mmHg (35-46) Arterial Blood pO2 at Patient Temp 87 mmHg (75-108) Arterial Blood HCO3 25 mmol/L (21-28) Arterial Blood Base Excess 1 mmol/L (-3-3) FiO2 40 Test 08/19/18 11:55 08/19/18 12:07 08/19/18 17:17 08/19/18 20:19 O2 Saturation 97 % (92-99) Arterial Blood pH 7.39 (7.35-7.45) Arterial Blood pCO2 at Patient Temp 43 mmHg (35-46) Arterial Blood pO2 at Patient Temp 108 mmHg (75-108) Arterial Blood HCO3 25 mmol/L (21-28) Arterial Blood Base Excess 0 mmol/L (-3-3) FiO2 40 Glucose (Fingerstick) 224 mg/dL (70-99) 190 mg/dL (70-99) 195 mg/dL (70-99) Test 08/20/18 03:15 08/20/18 03:45 08/20/18 08:15 White Blood Count 8.9 x10^3/uL (4.0-11.0) Red Blood Count 4.27 x10^6/uL (4.30-5.70) Hemoglobin 13.4 g/dL (13.0-17.5) Hematocrit 38.9 % (39.0-53.0) Mean Corpuscular Volume 91 fL (79-100) Mean Corpuscular Hemoglobin 31 pg (25-35) Mean Corpuscular Hemoglobin Concent 34 g/dL (31-37) Red Cell Distribution Width 13.2 % (11.5-14.5) Platelet Count 200 x10^3/uL (140-400) Neutrophils (%) (Auto) 78 % (31-73) Lymphocytes (%) (Auto) 15 % (24-48) Monocytes (%) (Auto) 7 % (0-9) Eosinophils (%) (Auto) 0 % (0-3) Basophils (%) (Auto) 0 % (0-3) Neutrophils # (Auto) 6.9 x10^3uL (1.8-7.7) Lymphocytes # (Auto) 1.3 x10^3/uL (1.0-4.8) Monocytes # (Auto) 0.6 x10^3/uL (0.0-1.1) Eosinophils # (Auto) 0.0 x10^3/uL (0.0-0.7) Basophils # (Auto) 0.0 x10^3/uL (0.0-0.2) Sodium Level 144 mmol/L (136-145) Potassium Level 3.5 mmol/L (3.5-5.1) Chloride Level 108 mmol/L (98-107) Carbon Dioxide Level 28 mmol/L (21-32) Anion Gap 8 (6-14) Blood Urea Nitrogen 8 mg/dL (8-26) Creatinine 0.7 mg/dL (0.7-1.3) Estimated GFR (Cockcroft-Gault) 123.7 Glucose Level 210 mg/dL (70-99) Calcium Level 8.9 mg/dL (8.5-10.1) Glucose (Fingerstick) 163 mg/dL (70-99) Laboratory Tests Test 08/19/18 11:55 08/19/18 12:07 08/19/18 17:17 08/19/18 20:19 O2 Saturation 97 % (92-99) Arterial Blood pH 7.39 (7.35-7.45) Arterial Blood pCO2 at Patient Temp 43 mmHg (35-46) Arterial Blood pO2 at Patient Temp 108 mmHg (75-108) Arterial Blood HCO3 25 mmol/L (21-28) Arterial Blood Base Excess 0 mmol/L (-3-3) FiO2 40 Glucose (Fingerstick) 224 mg/dL (70-99) 190 mg/dL (70-99) 195 mg/dL (70-99) Test 08/20/18 03:15 08/20/18 03:45 08/20/18 08:15 White Blood Count 8.9 x10^3/uL (4.0-11.0) Red Blood Count 4.27 x10^6/uL (4.30-5.70) Hemoglobin 13.4 g/dL (13.0-17.5) Hematocrit 38.9 % (39.0-53.0) Mean Corpuscular Volume 91 fL (79-100) Mean Corpuscular Hemoglobin 31 pg (25-35) Mean Corpuscular Hemoglobin Concent 34 g/dL (31-37) Red Cell Distribution Width 13.2 % (11.5-14.5) Platelet Count 200 x10^3/uL (140-400) Neutrophils (%) (Auto) 78 % (31-73) Lymphocytes (%) (Auto) 15 % (24-48) Monocytes (%) (Auto) 7 % (0-9) Eosinophils (%) (Auto) 0 % (0-3) Basophils (%) (Auto) 0 % (0-3) Neutrophils # (Auto) 6.9 x10^3uL (1.8-7.7) Lymphocytes # (Auto) 1.3 x10^3/uL (1.0-4.8) Monocytes # (Auto) 0.6 x10^3/uL (0.0-1.1) Eosinophils # (Auto) 0.0 x10^3/uL (0.0-0.7) Basophils # (Auto) 0.0 x10^3/uL (0.0-0.2) Sodium Level 144 mmol/L (136-145) Potassium Level 3.5 mmol/L (3.5-5.1) Chloride Level 108 mmol/L (98-107) Carbon Dioxide Level 28 mmol/L (21-32) Anion Gap 8 (6-14) Blood Urea Nitrogen 8 mg/dL (8-26) Creatinine 0.7 mg/dL (0.7-1.3) Estimated GFR (Cockcroft-Gault) 123.7 Glucose Level 210 mg/dL (70-99) Calcium Level 8.9 mg/dL (8.5-10.1) Glucose (Fingerstick) 163 mg/dL (70-99) Impression . IMPRESSION: 1. Acute respiratory failure. This patient intubated for airway protection in the Emergency Room. 2. Syncopal episode at home, etiology unclear, NO PE ON CT CHEST NO AORTIC DISSECTION 3. Type 2 diabetes. 4. Elevated blood sugar. 5. Mild respiratory acidosis. 6. Suspect obstructive sleep apnea. IMPRESSION: 1. No aortic dissection or aneurysm. 2. Respiratory motion artifact limits sensitivity for small peripheral pulmonary emboli. None are seen. 3. No significant arterial stenosis. Minimal atherosclerotic changes. 4. Borderline cardiomegaly. Correlate with echocardiography. 5. Moderate bilateral dependent atelectasis. Plan . OK TO DC FOLLOW NEEDED IN MY OFFICE FOLLOW UP WITH PCP FOLLOWING COMMANDS UTE GANDHI MD Aug 20, 2018 11:03
--- NOTE | 2018-08-20 11:36 | PDOC3 ---
Discharge Summary Visit Information Date of Admission: Aug 18, 2018 Date of Discharge: Aug 20, 2018 Admitting Diagnosis Comment: WORK EXHAUSTION Acute respiratory failure. This patient intubated for airway protection in the Emergency Room. NEG WORK UP FOR CAUSE OF RESPI FAILURE NO KNOWN CARDIAC/PULMO DSE DM 2 on OHA with [id number] 8.,9 Suspect obstructive sleep apnea. Obesity, BMI 36 Final Diagnosis Problems Medical Problems: (1) Altered mental status Status: Acute (2) Respiratory failure Status: Acute Brief Hospital Course Allergies Allergies Coded Allergies Type Severity Reaction Last Updated Verified No Known Drug Allergies 08/18/18 No Vital Signs Vital Signs Date Time Temp Pulse Resp B/P (MAP) Pulse Ox O2 Delivery O2 Flow Rate FiO2 08/20/18 11:00 90 18 146/83 (104) 97 Nasal Cannula 1.0 08/20/18 08:00 97.6 97.6 Lab Results Laboratory Tests Test 08/18/18 11:37 08/18/18 11:38 08/18/18 11:40 08/18/18 11:42 O2 Saturation 98 % (92-99) Arterial Blood pH 7.28 (7.35-7.45) Arterial Blood pCO2 at Patient Temp 55 mmHg (35-46) Arterial Blood pO2 at Patient Temp 180 mmHg (75-108) Arterial Blood HCO3 26 mmol/L (21-28) Arterial Blood Base Excess -2 mmol/L (-3-3) FiO2 80 Glucose (Fingerstick) 343 mg/dL (70-99) White Blood Count 9.5 x10^3/uL (4.0-11.0) Red Blood Count 4.55 x10^6/uL (4.30-5.70) Hemoglobin 14.4 g/dL (13.0-17.5) Hematocrit 41.9 % (39.0-53.0) Mean Corpuscular Volume 92 fL (79-100) Mean Corpuscular Hemoglobin 32 pg (25-35) Mean Corpuscular Hemoglobin Concent 34 g/dL (31-37) Red Cell Distribution Width 13.3 % (11.5-14.5) Platelet Count 189 x10^3/uL (140-400) Neutrophils (%) (Auto) 74 % (31-73) Lymphocytes (%) (Auto) 20 % (24-48) Monocytes (%) (Auto) 5 % (0-9) Eosinophils (%) (Auto) 0 % (0-3) Basophils (%) (Auto) 1 % (0-3) Neutrophils # (Auto) 7.0 x10^3uL (1.8-7.7) Lymphocytes # (Auto) 1.9 x10^3/uL (1.0-4.8) Monocytes # (Auto) 0.5 x10^3/uL (0.0-1.1) Eosinophils # (Auto) 0.0 x10^3/uL (0.0-0.7) Basophils # (Auto) 0.0 x10^3/uL (0.0-0.2) Platelet Estimate Adequate (ADEQUATE) Sodium Level 139 mmol/L (136-145) Potassium Level 3.9 mmol/L (3.5-5.1) Chloride Level 103 mmol/L (98-107) Carbon Dioxide Level 24 mmol/L (21-32) Anion Gap 12 (6-14) Blood Urea Nitrogen 14 mg/dL (8-26) Creatinine 1.0 mg/dL (0.7-1.3) Estimated GFR (Cockcroft-Gault) 81.9 BUN/Creatinine Ratio 14 (6-20) Glucose Level 343 mg/dL (70-99) Hemoglobin A1c 8.9 % (4.8-5.6) Lactic Acid Level 1.2 mmol/L (0.4-2.0) Calcium Level 9.5 mg/dL (8.5-10.1) Magnesium Level 1.8 mg/dL (1.8-2.4) Total Bilirubin 0.2 mg/dL (0.2-1.0) Aspartate Amino Transf (AST/SGOT) 19 U/L (15-37) Alanine Aminotransferase (ALT/SGPT) 49 U/L (16-63) Alkaline Phosphatase 88 U/L (46-116) Creatine Kinase 67 U/L (39-308) Creatine Kinase MB (Mass) 0.5 ng/mL (0.0-3.6) Creatine Kinase MB Relative Index % (0-4) Troponin I Quantitative < 0.017 ng/mL (0.000-0.055) QQ-Sdb-B-Type Natriuretic Peptide 7 pg/mL (0-124) Total Protein 7.5 g/dL (6.4-8.2) Albumin 3.8 g/dL (3.4-5.0) Albumin/Globulin Ratio 1.0 (1.0-1.7) Lipase 88 U/L (73-393) Thyroid Stimulating Hormone (TSH) 8.020 uIU/mL (0.358-3.74) Free Thyroxine 0.90 ng/dL (0.76-1.46) Acetone Level Neg (NEG) Urine Collection Type Unknown Urine Color Yellow Urine Clarity Clear Urine pH 5.5 Urine Specific [place] 1.020 Urine Protein Negative mg/dL (NEG-TRACE) Urine Glucose (UA) >=1000 mg/dL (NEG) Urine Ketones (Stick) Negative mg/dL (NEG) Urine Blood Negative (NEG) Urine Nitrite Negative (NEG) Urine Bilirubin Negative (NEG) Urine Urobilinogen Dipstick 0.2 mg/dL (0.2 mg/dL) Urine Leukocyte Esterase Negative (NEG) Urine RBC 0 /HPF (0-2) Urine WBC Occ /HPF (0-4) Urine Bacteria 0 /HPF (0-FEW) Urine Mucus Mod /LPF Urine Opiates Screen Neg (NEG) Urine Methadone Screen Neg (NEG) Urine Barbiturates Neg (NEG) Urine Phencyclidine Screen Neg (NEG) Urine Amphetamine/Methamphetamine Neg (NEG) Urine Benzodiazepines Screen Neg (NEG) Urine Cocaine Screen Neg (NEG) Urine Cannabinoids Screen Neg (NEG) Urine Ethyl Alcohol Neg (NEG) Test 08/18/18 11:47 08/18/18 13:00 08/18/18 13:30 08/18/18 15:30 Bedside Hemoglobin 13.6 g/dL (14-18) Bedside Hematocrit 40 % (37-52) Bedside Sodium 140 mmol/L (135-145) Bedside Potassium 4.1 mmol/L (3.5-5.0) Bedside Chloride 103 mmol/L (98-110) Bedside Total CO2 25 mmol/L (23-32) Anion Gap 16 mmol/L (6-14) Bedside Blood Urea Nitrogen 15 mg/dL (8-26) Bedside Creatinine 0.7 mg/dL (0.5-1.4) Glucose Level 340 mg/dL (70-99) Bedside Ionized Calcium (Caterina) 1.19 mmol/L (1.13-1.32) Prothrombin Time 13.2 SEC (11.7-14.0) Prothromb Time International Ratio 1.1 (0.8-1.1) Activated Partial Thromboplast Time 24 SEC (24-38) O2 Saturation 95 % (92-99) Arterial Blood pH 7.30 (7.35-7.45) Arterial Blood pCO2 at Patient Temp 48 mmHg (35-46) Arterial Blood pO2 at Patient Temp 87 mmHg (75-108) Arterial Blood HCO3 23 mmol/L (21-28) Arterial Blood Base Excess -3 mmol/L (-3-3) FiO2 40 CSF Color Colorless CSF Clarity Clear CSF WBC 2 CSF RBC 0 CSF Glucose 163 mg/dL (37-70) CSF Total Protein 39.6 mg/dL (15.0-45.0) Test 08/18/18 17:50 08/18/18 18:41 08/19/18 07:30 08/19/18 08:23 Nasal Screen MRSA (PCR) Negative (Negative) Glucose (Fingerstick) 253 mg/dL (70-99) 196 mg/dL (70-99) O2 Saturation 96 % (92-99) Arterial Blood pH 7.40 (7.35-7.45) Arterial Blood pCO2 at Patient Temp 42 mmHg (35-46) Arterial Blood pO2 at Patient Temp 87 mmHg (75-108) Arterial Blood HCO3 25 mmol/L (21-28) Arterial Blood Base Excess 1 mmol/L (-3-3) FiO2 40 Test 08/19/18 11:55 08/19/18 12:07 08/19/18 17:17 08/19/18 20:19 O2 Saturation 97 % (92-99) Arterial Blood pH 7.39 (7.35-7.45) Arterial Blood pCO2 at Patient Temp 43 mmHg (35-46) Arterial Blood pO2 at Patient Temp 108 mmHg (75-108) Arterial Blood HCO3 25 mmol/L (21-28) Arterial Blood Base Excess 0 mmol/L (-3-3) FiO2 40 Glucose (Fingerstick) 224 mg/dL (70-99) 190 mg/dL (70-99) 195 mg/dL (70-99) Test 08/20/18 03:15 08/20/18 03:45 08/20/18 08:15 White Blood Count 8.9 x10^3/uL (4.0-11.0) Red Blood Count 4.27 x10^6/uL (4.30-5.70) Hemoglobin 13.4 g/dL (13.0-17.5) Hematocrit 38.9 % (39.0-53.0) Mean Corpuscular Volume 91 fL (79-100) Mean Corpuscular Hemoglobin 31 pg (25-35) Mean Corpuscular Hemoglobin Concent 34 g/dL (31-37) Red Cell Distribution Width 13.2 % (11.5-14.5) Platelet Count 200 x10^3/uL (140-400) Neutrophils (%) (Auto) 78 % (31-73) Lymphocytes (%) (Auto) 15 % (24-48) Monocytes (%) (Auto) 7 % (0-9) Eosinophils (%) (Auto) 0 % (0-3) Basophils (%) (Auto) 0 % (0-3) Neutrophils # (Auto) 6.9 x10^3uL (1.8-7.7) Lymphocytes # (Auto) 1.3 x10^3/uL (1.0-4.8) Monocytes # (Auto) 0.6 x10^3/uL (0.0-1.1) Eosinophils # (Auto) 0.0 x10^3/uL (0.0-0.7) Basophils # (Auto) 0.0 x10^3/uL (0.0-0.2) Sodium Level 144 mmol/L (136-145) Potassium Level 3.5 mmol/L (3.5-5.1) Chloride Level 108 mmol/L (98-107) Carbon Dioxide Level 28 mmol/L (21-32) Anion Gap 8 (6-14) Blood Urea Nitrogen 8 mg/dL (8-26) Creatinine 0.7 mg/dL (0.7-1.3) Estimated GFR (Cockcroft-Gault) 123.7 Glucose Level 210 mg/dL (70-99) Calcium Level 8.9 mg/dL (8.5-10.1) Glucose (Fingerstick) 163 mg/dL (70-99) Laboratory Tests Test 08/19/18 11:55 08/19/18 12:07 08/19/18 17:17 08/19/18 20:19 O2 Saturation 97 % (92-99) Arterial Blood pH 7.39 (7.35-7.45) Arterial Blood pCO2 at Patient Temp 43 mmHg (35-46) Arterial Blood pO2 at Patient Temp 108 mmHg (75-108) Arterial Blood HCO3 25 mmol/L (21-28) Arterial Blood Base Excess 0 mmol/L (-3-3) FiO2 40 Glucose (Fingerstick) 224 mg/dL (70-99) 190 mg/dL (70-99) 195 mg/dL (70-99) Test 08/20/18 03:15 08/20/18 03:45 08/20/18 08:15 White Blood Count 8.9 x10^3/uL (4.0-11.0) Red Blood Count 4.27 x10^6/uL (4.30-5.70) Hemoglobin 13.4 g/dL (13.0-17.5) Hematocrit 38.9 % (39.0-53.0) Mean Corpuscular Volume 91 fL (79-100) Mean Corpuscular Hemoglobin 31 pg (25-35) Mean Corpuscular Hemoglobin Concent 34 g/dL (31-37) Red Cell Distribution Width 13.2 % (11.5-14.5) Platelet Count 200 x10^3/uL (140-400) Neutrophils (%) (Auto) 78 % (31-73) Lymphocytes (%) (Auto) 15 % (24-48) Monocytes (%) (Auto) 7 % (0-9) Eosinophils (%) (Auto) 0 % (0-3) Basophils (%) (Auto) 0 % (0-3) Neutrophils # (Auto) 6.9 x10^3uL (1.8-7.7) Lymphocytes # (Auto) 1.3 x10^3/uL (1.0-4.8) Monocytes # (Auto) 0.6 x10^3/uL (0.0-1.1) Eosinophils # (Auto) 0.0 x10^3/uL (0.0-0.7) Basophils # (Auto) 0.0 x10^3/uL (0.0-0.2) Sodium Level 144 mmol/L (136-145) Potassium Level 3.5 mmol/L (3.5-5.1) Chloride Level 108 mmol/L (98-107) Carbon Dioxide Level 28 mmol/L (21-32) Anion Gap 8 (6-14) Blood Urea Nitrogen 8 mg/dL (8-26) Creatinine 0.7 mg/dL (0.7-1.3) Estimated GFR (Cockcroft-Gault) 123.7 Glucose Level 210 mg/dL (70-99) Calcium Level 8.9 mg/dL (8.5-10.1) Glucose (Fingerstick) 163 mg/dL (70-99) Brief Hospital Course Mr. Sheets is a 42 old he said, very tall and muscular male has been working 150 hours a week. Admitted because of respiratory failure needing to be intubated in the ER. Family members are involved in his care the last thing they heard was a thump at home. Blood sugar was 700s on admission but did not need any insulin drip - this went down after just a few subcutaneous insulin or maybe fluids. Hemoglobin A1c 8.9. On OHA follows with a PCP for diabetes. All workup for syncope including a CTA head neck chest, cardiac workup, neuro workup , comanaged with many different specialties including pulmonary, cardiology, neurology are negative. We came up with the conclusion that this most likely is work exhaustion, he had elevated blood sugar. NO sz like activity, EEG neg, I did not need to start any Lantus long-acting. I did advise to follow-up with PCP and the will do. We have just been chasing sugars here with a sliding scale insulin but not needing any long-acting to start Patient seen and examined. No PT needs, no swallow issues, intubated only for overnight. consults cardiology/pulmonary/neurology Proc: multiple imaging, EEG all negative Discharge Information Condition at Discharge: Improved, Stable Disposition/Orders: D/C to Home GLORY DAVID MD Aug 20, 2018 11:36
[2018-08-20 21:14] LABS: HERPES SIMPLEX TYPE 1 Negative (Negative); HERPES SIMPLEX TYPE 2 Negative (Negative)
== END 2018-08-20 12:30 | disposition home or self-care (01) | DRG 208 ==
LOC: ER 11:30 → 1 WEST ICU 13:30
PROVIDERS: ADMIT Internal Medicine; ATTEND Internal Medicine
PROC: 5A1945Z Respiratory Ventilation, 24-96 Consecutive Hours (ICD-10-PCS; principal; 2018-08-18)
PROC: 0BH17EZ Insertion of Endotracheal Airway into Trachea, Via Natural or Artificial Opening (ICD-10-PCS; 2018-08-18)
PROC: 009U3ZX Drainage of Spinal Canal, Percutaneous Approach, Diagnostic (ICD-10-PCS; 2018-08-18)
PROC: B01B1ZZ Fluoroscopy of Spinal Cord using Low Osmolar Contrast (ICD-10-PCS; 2018-08-18)
DX: J96.00 Acute respiratory failure, unspecified whether with hypoxia or hypercapnia (principal); E87.2 Acidosis; J98.11 Atelectasis; I10 Essential (primary) hypertension; E78.5 Hyperlipidemia, unspecified; G47.33 Obstructive sleep apnea (adult) (pediatric); F17.210 Nicotine dependence, cigarettes, uncomplicated; E66.9 Obesity, unspecified; E11.65 Type 2 diabetes mellitus with hyperglycemia; M41.9 Scoliosis, unspecified; Z91.19 Patient's noncompliance with other medical treatment and regimen; Z82.49 Family history of ischemic heart disease and other diseases of the circulatory system; Z83.3 Family history of diabetes mellitus; Z68.36 Body mass index [BMI] 36.0-36.9, adult
CPT/HCPCS: 36415; 36600; 62270; 70450; 70496; 70498; 70551; 71045; 71275; 72125; 74018; 74174; 80047; 80048; 80053; 80307; 81001; 82010; 82553; 82805; 82945; 82962; 83036; 83605; 83690; 83735; 83880; 84157; 84439; 84443; 84484; 85025; 85610; 85730; 87040; 87071; 87075; 87529; 87641; 89051; 93005; 94002; 94003; 94640; 95816; C9113; J1650; J1815; J2310; J2405; J2704; J3010; J7030; Q9967; G0479

== ENCOUNTER → 2018-08-26 | Outpatient (CLI) | payer OTHER ==
[2018-08-20 11:00] VITALS: BP 146/83
--- NOTE | 2018-08-31 09:35 | SLEEP ---
DATE OF STUDY: 08/26/2018 ATTENDING PHYSICIAN: Dr. Den Leon. The patient is 42-year-old who weighs 305 pounds with a BMI of 35.2. The patient's [place] score was 5. The patient underwent home sleep study performed by [facility]. Total recording time was 471 minutes. During the night study, the patient had 9 central apneas, 16 obstructive apneas, no mixed apneas and 50 hypopneas. The patient's apnea-hypopnea index was 9.6 per hour. Supine sleep was not observed. EKG monitoring revealed mean heart rate of 78 beats per minute with a maximum of 145 beats per minute. Nocturnal oximetry study revealed an average oxygen saturation of 90% with a lowest of 85%. IMPRESSION: 1. Mild sleep apnea-hypopnea syndrome with an AHI of 9.6 per hour. 2. No clinically significant nocturnal hypoxia. RECOMMENDATIONS: 1. If the patient is clinically symptomatic, then the patient's mild sleep apnea can be treated with either a trial of oral appliance as recommended by the dentist versus a trial of CPAP titration. 2. Weight loss is strongly advised. 3. Avoid [employer] depressants. 4. Caution regarding driving until symptoms of sleep apnea resolve with the above recommendations. MD MAURICIO DE LA ROSA/olivia JOB#: [id number] / [id number] DEN Yang MD
== END | disposition home or self-care (01) ==
LOC: EDUNIT# 07-27 08:00 → RT 08:48
PROVIDERS: ATTEND Family Medicine
DX: G47.33 Obstructive sleep apnea (adult) (pediatric) (principal)
CPT/HCPCS: G0399